=== PATIENT | female | born 1995 | race Caucasian/White ===

== ENCOUNTER → 2018-01-18 10:30 | Outpatient (CLI) | payer BC, SELFPAY ==
--- NOTE | 2018-01-18 10:34 | US_ITS ---
STUDY: THYROID ULTRASOUND REASON FOR EXAM: Female, 22 years old. Thyromegaly. TECHNIQUE: Ultrasound evaluation of the thyroid was performed with real-time and static tate-scale imaging. COMPARISON: None. FINDINGS: RIGHT LOBE: Right thyroid 5.6 x 2.1 x 1.3 cm, mildly enlarged, with generalized heterogeneous echotexture, normal vascular flow, mid polar isoechoic solid nodule with Perinodular vascular flow measuring 7 x 5 x 7 mm. LEFT LOBE: Left thyroid 5.6 x 2.0 x 1.5 cm, mildly enlarged, with generalized heterogeneous echotexture, normal vascular flow, and a superior pole hypoechoic solid circumscribed nodule with Perinodular vascular flow. ISTHMUS: The isthmus measures 0.7 cm , heterogeneous echotexture. Nodular focus measuring 7 x 7 x 4 mm, hypoechoic, solid-appearing. US/Thyroid IMPRESSION: Discrete thyroid nodules are present on the right and the left. Largest on the left measures 11 x 9 x 8 mm. Each is solid. Background heterogeneity of the gland is suspicious for sequela of thyroiditis. Based on [place] [employer] Guidelines for assessment of thyroid nodules, the hypoechoic solid nodule on the left has an intermediate suspicion pattern while the isoechoic solid nodule on the right has a low suspicion pattern. Based on size criteria for the intermediate suspicion pattern dominant nodule, size greater than or equal to 1 cm, ultrasound-guided FNA biopsy is recommended. Electronically Signed: Jace Khan, at 18:17 EDT Tel , Service support ,
[2018-01-18 12:04] LABS: Hemoglobin A1c 7.8 % (4.2-6.3)
[2018-01-18 12:34] LABS: Free T3 3.6 pg/mL (2.18-3.98); T4 Free Direct 0.96 ng/dL (0.76-1.46); Thyroid Stim Hormone (TSH) 2.84 uIU/mL (0.358-3.74)
[2018-01-18 12:35] LABS: ALB/GLOB Ratio 0.7 RATIO (0.9-2.4); AST(SGOT) 18 U/L (15-37); Alanine Aminotransfer ALT/SGPT 21 U/L (13-56); Albumin, Serum 3.2 g/dL (3.2-5.0); Alkaline Phosphatase 91 U/L (45-117); Anion Gap 10 (5-15); BUN 7 mg/dL (7-18); BUN/Creat Ratio 13.3 RATIO (10-20); Chloride 103 mmol/L (98-107); Cholesterol 216 mg/dL (200); Creatinine, Serum 0.53 mg/dL (0.55-1.02); EST Glomerular Filtration Rate 152 mL/min (>60); Est Glom Filt Rate - Afr Amer 184 mL/min (>60); Globulin 4.3 g/dL (2.2-4.2); Glucose 109 mg/dL (74-106); High Density Lipoprotein 83 mg/dL; Potassium 3.9 mmol/L (3.5-5.1); Protein, Total 7.5 g/dL (6.4-8.2); Sodium Level 140 mmol/L (136-145); Triglycerides 100 mg/dL; Very Low Density Lipoprotein 20 mg/dL (5-40)
== END ==
PROVIDERS: Nurse Practitioner; Family Provider Internal Medicine; PCP Internal Medicine; Visit Provider Obstetrics & Gynecology
DX: E01.0 Iodine-deficiency related diffuse (endemic) goiter (principal); E10.9 Type 1 diabetes mellitus without complications
CPT/HCPCS: 36415; 76536; 80053; 80061; 83036; 84439; 84443; 84481

== ENCOUNTER → 2018-04-20 08:00 | Outpatient (CLI) | payer BC, SELFPAY ==
--- NOTE | 2018-04-20 | ASPS_PTH ---
PATIENT: RACHELE BEEBE LOC: [facility] U#:[id number] AGE/SX: 30/ ROOM: RE04/20/[address]: Dr. Rafat Alfaro MD : 1995 BED: DIS: SPEC #: [id number] RECD: 04/20/18 15:20 STATUS: EDGAR JUAN #: [id number] PRAVEENA: 04/20/18 00:[address]: Rafat Alfaro DEPT: CYTOLOGY RECD BY: Luiz Drake ENTERED: 04/23/18 11:17 SP TYPE: ASPIRATION OTHR DR: Dr. Sasha Fuentes MD Tissues: A - Thyroid gland, NOS B - Thyroid gland, NOS Procedures: Special Stain Group II Cytology Other HEADER OPERATION: Thyroid FNA PRE-OP DIAGNOSIS: Multiple thyroid nodules TISSUE SUBMITTED: A. Left thyroid, B. Right thyroid DIAGNOSIS CYTOLOGY A. Left thyroid nodule, fine needle aspiration (smears): Adequate for evaluation. Consistent with benign follicular nodule. Chronic lymphocytic thyroiditis. B. Right thyroid nodule, fine needle aspiration (smears): Adequate for evaluation. Atypical follicular cells of uncertain significance. Chronic lymphocytic thyroiditis. AM:duong 04/24/18 COMMENT Immediate cytologic evaluation to determine adequacy is not applicable. Reference is made to the patient's previous left thyroid nodule, fine needle aspiration from 2016 ([id number]) in which chronic lymphocytic thyroiditis was identified. CYTOLOGY STUDY Slides are reviewed. CYTOLOGY GROSS A. Received are 6 smears labeled with the patient's name and designated per the requisition as left thyroid. Submitted for staining. B. Received are 4 smears labeled with the patient's name and designated per the requisition as right thyroid. Submitted for staining. /CC:cc 04/23/18 TC:? CPT: 19103 x2
== END ==
PROVIDERS: Family Provider Internal Medicine; PCP Internal Medicine; Referring Provider Surgery; Visit Provider Surgery
DX: E04.2 Nontoxic multinodular goiter (principal)
CPT/HCPCS: 88161; 88313

== ENCOUNTER → 2018-10-25 12:39 | Outpatient (CLI) | payer BC, SELFPAY ==
[2018-03-23 11:48] VITALS: BMI 38.2
--- NOTE | 2018-10-25 12:41 | US_ITS ---
STUDY: THYROID ULTRASOUND REASON FOR EXAM: Female, 23 years old. Nodules TECHNIQUE: Ultrasound evaluation of the thyroid was performed with real-time and static tate-scale imaging. COMPARISON: 01/18/2018 FINDINGS: RIGHT LOBE: Right thyroid 5.4 x 1.6 x 1.6 cm, mildly enlarged, with generalized heterogeneous echotexture, normal vascular flow, mid polar isoechoic solid nodule with Perinodular vascular flow measuring 1.0 x 0.9 x 1.0 cm LEFT LOBE: Left thyroid 5.8 x 2.1 x 1.7 cm, mildly enlarged, with generalized heterogeneous echotexture, normal vascular flow, and a superior pole hypoechoic solid circumscribed nodule with Janki nodular vascular flow measuring 1.3 x 1.3 x 0.7 cm. ISTHMUS: The isthmus measures 0.7 cm US/Thyroid IMPRESSION: Discrete thyroid nodules are present on the right and the left. Largest on the left measures 1.3 x 1.3 x 0.7 cm each is solid. No interval change Electronically Signed: Dameon Werner MD at 16:20 EDT , Service support ,
== END ==
PROVIDERS: Family Provider Internal Medicine; PCP Internal Medicine; Referring Provider Surgery; Visit Provider Surgery
DX: E04.2 Nontoxic multinodular goiter (principal)
CPT/HCPCS: 76536

== ENCOUNTER → 2020-01-14 | Outpatient (CLI) | payer OTHER, SELFPAY ==
[2018-12-28 13:45] VITALS: BMI 38.2
== END | disposition home or self-care (01) ==
LOC: MTDU 11:18
PROVIDERS: PCP Internal Medicine; Referring Provider Clinical Nurse Specialist; Visit Provider Clinical Nurse Specialist
DX: Z03.818 Encounter for observation for suspected exposure to other biological agents ruled out (principal); R05 Cough; R50.9 Fever, unspecified
CPT/HCPCS: 87635; 94799; U0003

== ENCOUNTER → 2020-01-27 11:47 | Outpatient (CLI) | payer OTHER, SELFPAY ==
[2020-01-27 08:08] VITALS: BMI 38.2
[2020-01-31 17:02] LABS: HPV APTIMA, High Risk Negative (Negative); HPV Reflexed? YES, CHARGE PATIENT
== END ==
PROVIDERS: PCP Internal Medicine; Referring Provider Obstetrics & Gynecology; Visit Provider Obstetrics & Gynecology
DX: Z12.4 Encounter for screening for malignant neoplasm of cervix (principal)
CPT/HCPCS: 87624; 88175; G0145

== ENCOUNTER → 2020-04-10 | Outpatient (CLI) | payer OTHER, SELFPAY ==
[2020-01-27 08:08] VITALS: BMI 38.2
[2020-04-10 11:35] LABS: Absolute Lymphocyte Count 3.07 X10^3/uL (0.83-4.51); Basophil# 0.04 X10^3/uL; Basophil% 0.4 % (0-1); Eosinophil# 0.28 X10^3/uL; Eosinophils% 3.1 % (0-5); Hematocrit 40.9 % (37-47); Hemoglobin 13.1 g/dL (12.0-15.0); Lymphocyte # 3.07 X10^3/ul (4.0); Lymphocyte % 34.3 % (19-41); Mean Corpuscular Hgb 26.6 pg (27.0-32.0); Mean Corpuscular Volume 83.1 fL (81-99); Mean Platelet Vol. 10.3 fl (6.2-12.0); Monocyte# 0.46 X10^3/uL; Monocyte% 5.1 % (0-10); NRBC Flagged by Analyzer 0 % (0-5); Neutrophil # 5.03 X10^3/uL (2.7-7.7); Neutrophil % 56.4 % (47-70); Platelet Count 292 K/mm3 (150-450); RBC Distribution Width CV 13.2 % (11.6-14.6); RBC Distribution Width SD 39.8 fl (35.1-43.9); Red Blood Count 4.92 M/mm3 (4.2-5.4); White Blood Count 8.9 K/mm3 (4.4-11.0)
[2020-04-10 12:00] LABS: Protein, Urine (Random) 8.8 mg/dL (<11.9); Protein:Creat Ratio 135 mg/g CRE (0-200)
[2020-04-10 12:05] LABS: Hemoglobin A1c 9.1 % (3.8-5.6)
[2020-04-10 12:09] LABS: Rubella IgG 108.8 IU/mL
[2020-04-10 13:36] LABS: ALB/GLOB Ratio 0.8 RATIO (0.9-2.4); AST(SGOT) 12 U/L (15-37); Alanine Aminotransfer ALT/SGPT 23 U/L (13-56); Albumin, Serum 3.3 g/dL (3.2-5.0); Alkaline Phosphatase 121 U/L (45-117); Anion Gap 6 (5-15); BUN 7 mg/dL (7-18); Calcium,Total 8.5 mg/dL (8.5-10.1); Chloride 104 mmol/L (98-107); Creatinine, Serum 0.78 mg/dL (0.55-1.02); EST Glomerular Filtration Rate 95 mL/min (>60); Est Glom Filt Rate - Afr Amer 115 mL/min (>60); Estradiol 32.1 pg/mL; Follicle Stimulating Hormone 7.7 mIU/mL; Globulin 3.9 g/dL (2.2-4.2); Glucose 245 mg/dL (74-106); Potassium 3.5 mmol/L (3.5-5.1); Protein, Total 7.2 g/dL (6.4-8.2); Sodium Level 137 mmol/L (136-145); T4 Free Direct 0.96 ng/dL (0.76-1.46)
[2020-04-13 10:48] LABS: Testosterone Free 2.8 pg/mL (0.0-4.2)
[2020-04-18 14:30] LABS: 17-Hydroxyprogesterone 18 ng/dL (.)
== END | disposition home or self-care (01) ==
LOC: LAB 11:08
PROVIDERS: PCP Internal Medicine; Referring Provider Obstetrics & Gynecology; Visit Provider Obstetrics & Gynecology
DX: N92.6 Irregular menstruation, unspecified (principal)
CPT/HCPCS: 36415; 80053; 82570; 82627; 82670; 83001; 83036; 83498; 84146; 84156; 84402; 84439; 84443; 85025; 86762; 82626

== ENCOUNTER → 2020-12-28 09:57 | Outpatient (CLI) | payer OTHER, SELFPAY ==
[2020-12-24 16:24] VITALS: BMI 38.2
[2020-12-28 11:55] LABS: hCG Titer Quant., Serum 23167 mIU/mL (1-3)
== END ==
PROVIDERS: Obstetrics & Gynecology; PCP Internal Medicine; Referring Provider Obstetrics & Gynecology; Visit Provider Obstetrics & Gynecology
DX: N92.6 Irregular menstruation, unspecified (principal)
CPT/HCPCS: 36415; 84702; 86850; 86900; 86901

== ENCOUNTER → 2020-12-29 13:24 | Outpatient (CLI) | payer OTHER, SELFPAY ==
[2020-12-24 16:24] VITALS: BMI 38.2
--- NOTE | 2020-12-29 13:27 | US_ITS ---
STUDY: FIRST TRIMESTER OBSTETRICAL ULTRASOUND REASON FOR EXAM: Female, 25 years old . Dating. Irregular menses. LMP: 11/13/2020. TECHNIQUE: Transvaginal TECHNICAL QUALITY: Adequate. PRIOR ULTRASOUND: None. FINDINGS: There is visualization of a single gestational sac in a normal intrauterine position. The gestational sac shape is within normal limits. There is a visualized yolk sac. The yolk sac measures 3.9 mm. The placenta is non-visualized. There is visualization of a live embryo. The crown-rump length (CRL) measures 0.99 cm, indicating an estimated gestational age (EGA) of 7 weeks, 0 days. There is demonstrated cardiac activity with a heart rate of 152 bpm. The estimated gestation age (EGA) by LMP is 8 weeks, 4 days. The estimated date of delivery (DARYN) by LMP is 08/06/2021. The estimated gestation age (EGA) by US is 7 weeks, 0 days. The estimated date of delivery (DARYN) by US is 08/17/2021. The uterus measures 9.7 cm x 6.1 cm x 5.4 cm. There is no demonstrated uterine fibroid. The cervix is closed. There is a 1.1 cm x 1.6 cm x 0.5 cm subchorionic hematoma. The right ovary measures 3.1 cm x 2.8 cm x 2.2 cm. There is no right ovarian cyst. There is no visualized right adnexal mass or complex lesion. The left ovary measures 3 cm x 3.4 cm x 2 cm. A dominant follicle is seen within it measuring 1.6 cm x 1.6 cm x 1.3 cm. There is no visualized left adnexal mass or complex lesion. There is no fluid in the cul de sac. US/Transvaginal w/Preg US IMPRESSION: Single live intrauterine gestation with a mean gestational age of 7 weeks. Small subchorionic hematoma. Electronically Signed: Kingsley Tubbs MD at 9:30 EDT , Service support ,
== END ==
LOC: OPUS 13:26
PROVIDERS: PCP Internal Medicine; Visit Provider Obstetrics & Gynecology
DX: N92.6 Irregular menstruation, unspecified (principal)
CPT/HCPCS: 76817

== ENCOUNTER → 2021-01-01 | Outpatient (CLI) | payer OTHER, SELFPAY ==
[2021-01-01 11:28] VITALS: BMI 38.2
[2021-01-01 13:42] LABS: Amphetamine Urine VISTA NEGATIVE (<1000 ng/mL); Barbiturate Urine VISTA NEGATIVE (< 200 ng/mL); Benzodiazepine Urine VISTA NEGATIVE (< 200 ng/mL); Cocaine Urine VISTA NEGATIVE (< 300 ng/mL); Ecstacy Urine VISTA NEGATIVE (< 500 ng/mL); Methadone Urine VISTA NEGATIVE (< 300 ng/mL); PCP Urine VISTA NEGATIVE (< 25 ng/mL); THC Urine VISTA NEGATIVE (< 50 ng/mL); Vista UDS pH Range 6
[2021-01-04 07:06] LABS: Chlamydia By Nucleic Acid AMP Negative (Negative)
[2021-01-04 12:38] LABS: Gonococcus By Nucleic Acid AMP Negative (Negative)
[2021-01-05 14:09] LABS: HPV Reflexed? NOT INDICATED
== END | disposition home or self-care (01) ==
PROVIDERS: PCP Internal Medicine; Visit Provider Obstetrics & Gynecology
DX: Z34.90 Encounter for supervision of normal pregnancy, unspecified, unspecified trimester (principal)
CPT/HCPCS: 80307; 87077; 87086; 87088; 87186; 87491; 87591; 88175; G0145

== ENCOUNTER → 2021-01-27 12:42 | Outpatient (CLI) | payer OTHER, SELFPAY ==
[2021-01-14 09:19] VITALS: BMI 38.2
[2021-01-27 13:39] LABS: Absolute Lymphocyte Count 2.84 X10^3/uL (0.83-4.51); Absolute Neutrophil Count 8.5 X10^3/uL (2.0-7.7); Basophil# 0.03 X10^3/uL; Basophil% 0.2 % (0-1); Eosinophil# 0.25 X10^3/uL; Hematocrit 39.7 % (37-47); Hemoglobin 12.6 g/dL (12.0-15.0); Lymphocyte # 2.84 X10^3/ul (0.83-4.51); Lymphocyte % 22.9 % (19-41); Mean Corp Hgb Conc 31.7 g/dL (32-36); Mean Corpuscular Hgb 25.8 pg (27.0-32.0); Mean Corpuscular Volume 81.2 fL (81-99); Mean Platelet Vol. 10.4 fl (6.2-12.0); Monocyte# 0.67 X10^3/uL; Monocyte% 5.4 % (0-10); NRBC Flagged by Analyzer 0 % (0-5); Neutrophil # 8.54 X10^3/uL (2.7-7.7); Neutrophil % 68.9 % (47-70); Platelet Count 328 K/mm3 (150-450); RBC Distribution Width CV 13.3 % (11.6-14.6); Red Blood Count 4.89 M/mm3 (4.2-5.4); White Blood Count 12.4 K/mm3 (4.4-11.0)
[2021-01-27 13:51] LABS: NATERA MAILED SPECIMEN
[2021-01-27 15:01] LABS: HIV - WCH Non-Reactive (Nonreactive); Hepatitis B Surface Antigen Non-Reactive (Nonreactive); Hepatitis C Antibody Non-Reactive (Nonreactive); Rubella IgG Reactive (Nonreactive); Syphilis Antibodies Non-reactive
== END ==
PROVIDERS: PCP Internal Medicine; Visit Provider Obstetrics & Gynecology
DX: Z34.81 Encounter for supervision of other normal pregnancy, first trimester (principal); Z31.430 Encounter of female for testing for genetic disease carrier status for procreative management
CPT/HCPCS: 36415; 85025; 86703; 86762; 86780; 86803; 86850; 86900; 86901; 87340

== ENCOUNTER → 2021-04-09 16:58 | Outpatient (CLI) | payer MEDICAID, SELFPAY ==
[2021-04-09 17:33] LABS: Absolute Lymphocyte Count 2.67 X10^3/uL (0.83-4.51); Absolute Neutrophil Count 10.2 X10^3/uL (2.0-7.7); Basophil# 0.02 X10^3/uL; Basophil% 0.1 % (0-1); Eosinophil# 0.25 X10^3/uL; Eosinophils% 1.8 % (0-5); Hematocrit 36.8 % (37-47); Hemoglobin 11.7 g/dL (12.0-15.0); Lymphocyte # 2.67 X10^3/ul (0.83-4.51); Lymphocyte % 19.1 % (19-41); Mean Corp Hgb Conc 31.8 g/dL (32-36); Mean Corpuscular Hgb 25.5 pg (27.0-32.0); Mean Corpuscular Volume 80.3 fL (81-99); Mean Platelet Vol. 10.7 fl (6.2-12.0); Monocyte# 0.69 X10^3/uL; Monocyte% 4.9 % (0-10); NRBC Flagged by Analyzer 0 % (0-5); Neutrophil # 10.24 X10^3/uL (2.7-7.7); Neutrophil % 73.4 % (47-70); Platelet Count 317 K/mm3 (150-450); RBC Distribution Width CV 14.1 % (11.6-14.6); RBC Distribution Width SD 41.1 fl (35.1-43.9); Red Blood Count 4.58 M/mm3 (4.2-5.4)
[2021-04-09 18:21] LABS: T4 Free Direct 0.74 ng/dL (0.76-1.46); Thyroid Stim Hormone (TSH) 2.31 uIU/mL (0.358-3.74)
== END ==
PROVIDERS: PCP Internal Medicine; Referring Provider Obstetrics & Gynecology; Visit Provider Obstetrics & Gynecology
DX: O24.012 Pre-existing type 1 diabetes mellitus, in pregnancy, second trimester (principal); Z3A.20 20 weeks gestation of pregnancy
CPT/HCPCS: 36415; 84439; 84443; 85025

== ENCOUNTER → 2021-05-31 10:18 | Outpatient (CLI) | payer MEDICAID, SELFPAY ==
[2021-05-31 11:11] LABS: Hemoglobin A1c 5.8 % (3.8-5.6)
== END ==
PROVIDERS: PCP Internal Medicine
DX: O24.012 Pre-existing type 1 diabetes mellitus, in pregnancy, second trimester (principal)
CPT/HCPCS: 36415; 83036

== ENCOUNTER → 2021-06-15 14:00 | Outpatient (CLI) | payer MEDICAID, SELFPAY ==
--- NOTE | 2021-06-15 14:06 | ECHOD_ITS ---
Reason For Study: Maternal DM I Procedure This was a 2D Doppler, Color Flow transthoracic echocardiogram. The study was technically difficult. Due to body habitus. Deferred Definity due to patient is 31 weeks . Exam performed in department. Left Ventricle Normal LV size. Left ventricular systolic function is normal. The estimated ejection fraction is 55 %. No regional wall motion abnormalities noted. Right Ventricle Normal RV size. Normal systolic function. Atria Normal left atrium. Normal right atrium. Mitral Valve Normal mitral valve. Tricuspid Valve Normal tricuspid valve. Aortic Valve The aortic valve is not well visualized. Pulmonic Valve The pulmonic valve is not well visualized. Great Vessels Normal aortic root. The pulmonary artery is normal size. Normal inferior vena cava. Pericardium/Pleural No pericardial effusion. MMode/2D Measurements & Calculations LVIDd: 4.6 cm IVSd: 1.1 cm Ao root diam: 3.1 cm LVIDs: 3.2 cm LVPWd: 1.1 cm RVDd: 2.9 cm FS: 31.8 % LAV(MOD-bp): 52.1 ml LA A4 area: 18.4 cm2 LA dimension(2D): 3.7 cm LAV(MOD-bp) Indexed: 23.0 ml/m2 LAV(MOD-sp2): 49.5 ml LAV(MOD-sp4): 49.9 ml RA A4 area: 13.1 cm2 Time Measurements MV dec time: 0.22 sec Doppler Measurements & Calculations MV E max adeel: 90.7 cm/sec Lat Peak E' Adeel: 14.2 cm/sec Med Peak E' Adeel: 14.5 cm/sec MV A max adeel: 89.4 cm/sec E/E' lat: 6.4 E/E' med: 6.2 MV E/A: 1.0 Ao V2 max: 162.7 cm/sec LV V1 max: 126.0 cm/sec PA V2 max: 117.8 cm/sec Ao max P.6 mmHg LV V1 max P.4 mmHg ECHO/Echo Complete Interpretation Summary Normal LV size. Left ventricular systolic function is normal. The estimated ejection fraction is 55 %. Structurally normal valves. Ordering Physician: NOHELIA COYLE Referring Physician: Sasha Fuentes Performed By: Beata Jin, SIMRAN, RVT
== END ==
PROVIDERS: PCP Internal Medicine
DX: O24.012 Pre-existing type 1 diabetes mellitus, in pregnancy, second trimester (principal); Z3A.00 Weeks of gestation of pregnancy not specified
CPT/HCPCS: 93306

== ENCOUNTER 2021-08-06 16:48 | Outpatient (CLI) | payer MEDICAID, SELFPAY | END 2021-08-06 23:59 | disposition home or self-care (01) | LOC: LABSPEC 16:49 | PROVIDERS: PCP Internal Medicine; Visit Provider Obstetrics & Gynecology | DX: Z34.83 Encounter for supervision of other normal pregnancy, third trimester (principal); Z3A.37 37 weeks gestation of pregnancy; Z20.822 Contact with and (suspected) exposure to COVID-19 | CPT/HCPCS: 87635; U0003; U0005 ==

== ENCOUNTER 2021-08-08 21:30 | Outpatient (CLI) | payer MEDICAID, SELFPAY ==
[2021-08-08] VITALS (7 sets, daily range): BP systolic 141; BP diastolic 68; PULSE 98–116; TEMP 36.9; O2SAT 96–97; BMI 52.6
[2021-08-08 22:45] LABS: Bedside Glucose 67 mg/dL (70-110)
[2021-08-08 22:45] LABS: Bedside Glucose 87 mg/dL (70-110)
--- NOTE | 2021-08-09 06:35 | OB.TRI.HP_ITS ---
HPI - General HPI Narrative RACHELE BEEBE, is a 26 y/o @ 38 weeks 6 days who presents to l&D with contractions. She denies loss of fluid, vaginal bleeding, or dec fm. She has type 1 DM on insulin and is planned to have an IOL on Monday Maternal Data Information DARYN Calculator Estimated Delivery Date Method Current WG Current Estimate 08/17/21 Ultrasound #1 38w 6d Other Estimates 08/06/21 LMP (Certain) 40w 3d PFSH PFSH Medical History Anxiety and depression Diabetes type 1, controlled GERD (gastroesophageal reflux disease) Infertility Positive GBS test Home Medications cholecalciferol (vitamin D3) 25 mcg (1,000 unit) capsule 1,000 unit PO QDAY 01/08/18 [History Last Taken Unknown] docosahexaenoic acid 200 mg capsule 200 mg PO DAILY 01/08/18 [History Last Taken Unknown] flash glucose sensor #2 ea 01/11/21 [Rx Last Taken Unknown] insulin glargine 100 unit/mL (3 mL) subcutaneous pen See Rx Instructions .ROUTE .COMPLEX ml 07/08/21 [History Last Taken Unknown] insulin lispro 100 unit/mL subcutaneous pen 36 unit SUBCUT TID ml 07/08/21 [ History Last Taken Unknown] aspirin 08/08/21 [History Last Taken Unknown] folic acid 5 mg PO DAILY 08/08/21 [History Last Taken Unknown] Allergy/AdvReac Type Severity Reaction Status Date / Time cefadroxil Allergy Unknown Unknown Verified 08/06/21 13:52 metformin [From Glucophage] Allergy Rash Verified 08/06/21 13:52 acetaminophen AdvReac Hives Verified 08/08/21 22:17 [From [facility] with Codeine] codeine AdvReac Hives Verified 08/08/21 22:17 [From [facility] with Codeine] SEPZOL AdvReac Nausea/Vom/ Uncoded 08/06/21 13:52 Diarrhea Family History Grandfather Liver cancer Grandmother Lymphoma Unknown Diabetes Hypertension Cancer Arthritis Mother Diabetes Asthma Arthritis Sister Diabetes Surgical History H/O removal of cyst History of placement of ear tubes Social History adopted: No household members: spouse and other details: mother number of children: 0 current occupational status: unemployed Smoking Status: Never smoker alcohol intake: current substance use type: does not use caffeine: Yes (occasionally) what type of physical activity do you participate in: none seatbelt use: always do you feel safe at home: Yes additional social history: Anurag Price Patient takes care of her mom History 0 Elective abortions Hx Para Spontaneous abortions Hx # Term Pregnancies Ectopic pregnancies Hx # Pregnancies Multiple births # of living children Visit Details Expected Delivery Route/Plan Labor Preferences- CB/BF classes: considering labor support person: Ras labor intervention preferences: [] pain management options preferred: [] cut cord/dad catch: [] : [] PP control planned: [] discussed possible routes of delivery and associated risks: [] special requests: [] Plans COVID: Discussed risks and benefits of Covid shot. counseled regarding risk of covid in vs vaccination and declined vaccinationi flu vaccine: 03/08 tdap vaccine: given rhogam: na LARC form signed: movement and labor precautions reviewed. Problem list reviewed and updated with the most current plan of care details and appropriate orders placed. Relevant counseling for the gestational age provided. Continue routine care and follow up unless otherwise noted in visit notes/problem list details OB Flowsheet Initial Weight: 272 lb Date -?-?-?-?-?-?-?-?-?-?-?-?- EGA Weight BP Urine Prot -?-?-?-?-?-?--?-?-?-?-?-?- Glucose FHR FuHt Pres Dilation -?-?-?-?-?-?-?-?-?-?-?-?- Effaced St Visit Note 01/01/21 -?-?-?-?-?-?-?-?-?-?-?-?- 7w 3d 272 lb (+0 oz) 144/90 -?-?-?-?-?-?-?-?-?-?-?-?- 168 -?-?-?-?-?-?-?-?-?-?-?-?- GP - CRL 11mm co nsistent with prior US. NOT consistent with LMP. 01/14/21 -?-?-?-?-?-?-?-?-?-?-?-?- 9w 2d 275 lb 4 oz (+3 lb 4 oz) 122/60 -?-?-?-?-?-?-?-?-?-?-?-?- 171 -?-?-?-?-?-?--?-?-?-?-?-?- GP - no cramping or bleeding. Saw endocrinology, but likely changing to different endocrinology practice. Discussed importance of glycemic control. 02/08/21 -?-?-?-?-?-?-?-?-?-?-?-?- 12w 6d 280 lb (+8 lb) 138/78 -?-?-?-?-?-?-?-?-?-?-?-?- 160 -?-?-?-?-?-?-?-?-?-?-?-?- Sm- no vb cramin g, nausea in evenings. 03/08/21 -?-?-?-?-?-?-?-?-?-?-?-?- 16w 6d 286 lb (+14 lb) 128/78 Negative -?-?-?-?-?-?-?-?-?-?-?-?- Negative 168 -?-?-?-?-?-?-?-?-?-?-?-?- GP - no cramping or bleeding. Following with MFM for diabetes. Flu shot today. 04/02/21 -?-?-?-?-?-?-?-?-?-?-?-?- 20w 3d 289 lb 4 oz (+17 lb 4 oz) 116/68 Negative -?-?-?-?-?-?-?-?-?-?-?-?- Negative 155 -?-?-?-?-?-?-?-?-?-?-?-?- GP - work in for breast lump. Normal breast changes of . Denies cramping or bleeding. 04/09/21 -?-?-?-?-?-?-?-?-?-?-?-?- 21w 3d 294 lb 2 oz (+22 lb 2 oz) 122/70 Negative -?-?-?-?-?-?-?-?-?-?-?-?- Negative 150 22 -?-?-?-?-?-?-?-?-?-?-?-?- Sm- no vb lof so me fm no regualr ctx 05/06/21 -?-?-?-?-?-?-?-?-?-?-?-?- 25w 2d 298 lb 8 oz (+26 lb 8 oz) 130/70 -?-?-?-?-?-?-?-?-?-?-?-?- 147 32 -?-?-?-?-?-?-?-?-?-?-?-?- JV- growth scan at end of month. continue follow up with endo. ua negative. 05/27/21 -?-?-?-?-?-?-?-?-?-?-?-?- 28w 2d 304 lb (+32 lb) 118/72 Negative -?-?-?-?-?-?-?-?-?-?-?-?- Negative 145 32 -?-?-?-?-?-?-?-?-?-?-?-?- SM- no vb lof go od fm no regular ctx SM- no vb lof good fm no reg ular ctx reviewed BS control 06/07/21 -?-?-?-?-?-?-?-?-?-?-?-?- 29w 6d 305 lb (+33 lb) 124/70 Negative -?-?-?-?-?-?-?-?-?-?-?-?- Negative 145 33 -?-?-?-?-?-?-?-?-?-?-?-?- SM- no vb lof go od fm no regular ctx 07/01/21 -?-?-?-?-?-?-?-?-?-?-?-?- 33w 2d 307 lb (+35 lb) 114/72 Negative -?-?-?-?-?-?-?-?-?-?-?-?- Negative 140 -?-?-?-?-?-?-?-?-?-?-?-?- MH-NST only reac tive. Glucose reading nl 07/08/21 -?-?-?-?-?-?-?-?-?-?-?-?- 34w 2d 305 lb 6 oz (+33 lb 6 oz) 106/70 Negative -?-?-?-?-?-?-?-?-?-?-?-?- Negative 140 -?-?-?-?-?-?-?-?-?-?-?-?- SM- BS managed b y MFM. doing well. no vb lof good fm no regular ctx 07/16/21 -?-?-?-?-?-?-?-?-?-?-?-?- 35w 3d 308 lb 4 oz (+36 lb 4 oz) 110/70 -?-?-?-?-?-?-?-?-?-?-?-?- 130 -?-?-?-?-?-?-?-?-?-?-?-?- SM- nst SM- nst no vb lof good fm no regular ctx 07/29/21 -?-?-?-?-?-?-?-?-?-?-?-?- 37w 2d 315 lb (+43 lb) 122/81 Negative -?-?-?-?-?-?-?-?-?-?-?-?- Negative 130 -?-?-?-?-?-?-?-?-?-?-?-?- SM- no vb lof go od fm no regular ctx nst reactive saw mfm monday08/06/21 -?-?-?-?-?-?-?-?-?-?-?-?- 38w 3d 315 lb (+43 lb) 120/78 Negative -?-?-?-?-?-?-?-?-?-?-?-?- Negative -?-?-?-?-?-?-?-?-?-?-?-?- 08/08/21 -?-?-?-?-?-?-?-?-?-?-?-?- 38w 6d 316 lb 6.4 oz (+44 lb 6.4 oz) 141/68 -?-?-?-?-?-?-?-?-?-?-?-?- -?-?-?-?-?-?-?-?-?-?-?-?- ROS Constitutional Constitutional: Reports systems reviewed and no addt'l complaints, except as documented Gastrointestinal Gastrointestinal: Denies bloating, constipation, cramping, diarrhea, nausea or vomiting Genitourinary Genitourinary: Reports other Details: Denies vaginal odor, vaginal bleeding, or vaginal discharge ; Denies difficulty urinating or flank pain Physical Exam HEENT normocephalic Resp normal respiratory effort and normal air movement no CVA tenderness Extremity normal to inspection General Extremity: edema bilateral (trace ) NST FHR Rate Baby A Baseline: 130 Variability:: Moderate Accelerations:: 15 x 15 Decelerations:: None NST Reactive:: Yes FHR Category:: Category I Assessment & Plan (1) Positive GBS test: COMMENT: positive gbs in urine. PCN in labor (2) Family history of neural tube defect: COMMENT: Sister with encephalocele. afp negative. folic acid supplement. (3) Anxiety: COMMENT: No meds (4) Supervision of high risk , antepartum: COMMENT: PRR DARYN 08/17/21 girl Damari Spouse: Ze (5) : QUALIFIERS: Weeks of gestation: 37 weeks Qualified Code(s): Z3A.37 - 37 weeks gestation of COMMENT: declines carrier, AFP-negative, low risk NIPT; NL anatomy and nl echo. (6) Multiple thyroid nodules: COMMENT: bloodwork and imaging ordered-WNL. No repeat done X 1 year (7) Diabetes type 1, controlled: QUALIFIERS: Diabetes mellitus complication status: without complication Qualified Code(s): E10.9 - Type 1 diabetes mellitus without complications COMMENT: MFM following. growth every 4 weeks, twice weekly surveillance and daily kick counts starting at 32 weeks. delivery at 39 weeks. PLAN: The patien was monitored for 2 hours and did not make cervical ch zac. She was given 3 options, #1 morphine + IV zofran and recheck cervix in 1-2 hours, #2 home to rest and a warm bath and return when pain gets better, and #3 induction of labor. She chose to go home. plan for IOL on Monday unless returns in labor. Charges/Coding Multi Select Codes Visit Charges Office Visit/Consults: 43201 OV L3 Est Urinary/Genital Urinary/Genital CPT Codes: 09897-74 non-stress test Interp
== END 2021-08-09 01:00 | disposition home or self-care (01) ==
LOC: WPOUT 21:37 → WP 21:38
PROVIDERS: PCP Internal Medicine; Visit Provider Obstetrics & Gynecology
DX: O24.013 Pre-existing type 1 diabetes mellitus, in pregnancy, third trimester (principal); Z79.4 Long term (current) use of insulin; E10.9 Type 1 diabetes mellitus without complications; O99.343 Other mental disorders complicating pregnancy, third trimester; F41.9 Anxiety disorder, unspecified; Z79.82 Long term (current) use of aspirin; Z3A.37 37 weeks gestation of pregnancy; Z79.899 Other long term (current) drug therapy
CPT/HCPCS: 59050; G0378 ×2; 82962; 59025; 99218

== ENCOUNTER 2021-08-09 10:35 | Inpatient (IN) | payer MEDICAID, SELFPAY ==
[2021-08-09] VITALS (36 sets, daily range): BP systolic 113–144; BP diastolic 53–85; PULSE 77–114; TEMP 36.4–36.9; O2SAT 91–99; BMI 52.7
[2021-08-09 10:10] LABS: ROM Internal Control Test YES-OK TO RESULT pt. (Internal QC)
[2021-08-09 10:11] LABS: ROM Patient Test POSITIVE (Negative)
[2021-08-09] MEDS: Lactated Ringers 1,000 ML 50 ML IV (10:30)
[2021-08-09 10:52] LABS: Absolute Lymphocyte Count 1.63 X10^3/uL (0.83-4.51); Absolute Neutrophil Count 9.1 X10^3/uL (2.0-7.7); Basophil# 0.03 X10^3/uL; Basophil% 0.3 % (0-1); Eosinophil# 0.06 X10^3/uL; Eosinophils% 0.5 % (0-5); Hematocrit 37.4 % (37-47); Hemoglobin 11.9 g/dL (12.0-15.0); Lymphocyte # 1.63 X10^3/ul (0.83-4.51); Lymphocyte % 14.2 % (19-41); Mean Corp Hgb Conc 31.8 g/dL (32-36); Mean Corpuscular Hgb 24.5 pg (27.0-32.0); Mean Corpuscular Volume 77.1 fL (81-99); Mean Platelet Vol. 11.4 fl (6.2-12.0); Monocyte# 0.67 X10^3/uL; Monocyte% 5.8 % (0-10); NRBC Flagged by Analyzer 0 % (0-5); Neutrophil # 9.06 X10^3/uL (2.7-7.7); Neutrophil % 78.7 % (47-70); Platelet Count 255 K/mm3 (150-450); RBC Distribution Width CV 15.1 % (11.6-14.6); RBC Distribution Width SD 41.1 fl (35.1-43.9); Red Blood Count 4.85 M/mm3 (4.2-5.4); White Blood Count 11.5 K/mm3 (4.4-11.0)
[2021-08-09 11:11] LABS: Bedside Glucose 133 mg/dL (70-110)
[2021-08-09] MEDS: Lactated Ringers 500 ML 999 ML IV (11:54)
[2021-08-09] MEDS: fentaNYL-bupivacaine (epidural) 100 ML BAG EPIDURAL ×3 (12:45→21:26)
[2021-08-09 12:46] LABS: Bedside Glucose 161 mg/dL (70-110)
[2021-08-09] MEDS: Lactated Ringers 1,000 ML 15 ML IV (13:49)
[2021-08-09] MEDS: Dext 5%-0.45% NS 1,000 ML 125 ML IV ×2 (13:50→22:20)
[2021-08-09 14:20] LABS: Bedside Glucose 166 mg/dL (70-110)
[2021-08-09 14:20] LABS: Bedside Glucose 159 mg/dL (70-110)
--- NOTE | 2021-08-09 14:47 | NURSING ---
1415: Blood Glucose 166. Insulin drip started at 2units/hr per protocol. Verified with Jodie ORDONEZ, SITE PHYSICIAN.
--- NOTE | 2021-08-09 14:50 | NURSING ---
Pt Type 1 DM. BG POC at 1100 133. Rechecked in 1hr POC 161. Dr. Andrew on unit to evaluate pt at 1218. Verbal order given for OB Diabetic Pt Insulin infusion. Order placed. Pt then desired epidural. Dr. Schwartz in room to place epidural at 1226. Epidural placed. This RN then went to obtain Insulin infusion medication. Noted medication was not on unit at this time. Went into MAR and noted that the medication was ordered but there was no specified start time for the medication. Call was placed to Pharmacy to figure out where insulin drip was. Sticker had printed for them to make medication but pharmacy was not sure why I could not see a start time on my end in MAR. Believe it is because Dr. Andrew is still in the chart. During this time approx 1315 BG POC was obtained by Ck, result of 159. Call was placed to [place]. Spoke with nurse regarding Dr. Andrew still in chart. Was told she would locate her. This RN then went to pts room to set up pumps in preparation for insulin drip and place calderón catheter. Insulin drip medication brought to room by registered respiratory technician. Ck came to room to start Insulin drip. Per protocol Insulin drip was to be started at 1.5units/hr. Attempted to scan medication to give. Window appeared in MAR asking for dose, units, rate in ml/hr. Attempted to fill in boxes. Error for units identified. Multiple different entries made and unable to get past this window. Call made to pharmacist. Pharmacist is unable to identify the problem as the medication looks correct on her end. Jodie ORDONEZ, CONTAINER WASHER called to room for assistance. Jodie unsure of this problem. Pharmacist believes the issue is the flowsheet that is connected to the medication order. Call was placed to [facility] by the Pharmacist. Pharmacist states that there are no clinical economics analyst in the hospital at this time. Per Pharmacist document administration and titration in Nurses Notes. Blood glucose POC obtained at approx 1415 before starting of insulin drip. BG POC 166. Protocol verified with this RN and Jodie ORDONEZ, CONTAINER WASHER. Drip to be started at 2units/hr. Will continue to document titration in Nursing Notes.
--- NOTE | 2021-08-09 15:20 | NURSING ---
Blood Glucose POC obtained, result of 161. Per Protocol Insulin gtt increased to 3units/hr. Medication increased and verified with Ck ORDONEZ.
--- NOTE | 2021-08-09 16:23 | NURSING ---
1620 BG POC 144. Per protocol insulin to be increases by 0.5 units/hr. This RN and Latasha ORDONEZ changed dose. Insulin now running at 3.5units/hr.
[2021-08-09 16:26] LABS: Bedside Glucose 161 mg/dL (70-110)
[2021-08-09 16:26] LABS: Bedside Glucose 144 mg/dL (70-110)
[2021-08-09] MEDS: Oxytocin 30 units/NS 500 ml 30 UNITS/500 ML IV.SOLN IV (16:56)
--- NOTE | 2021-08-09 17:20 | NURSING ---
Pts POC Blood Glucose checked. Result 111. Per protocol rate decreased by 50%. With Ck ORDONEZ insulin rate decreased to 1.75units/hr.
[2021-08-09 17:26] LABS: Bedside Glucose 111 mg/dL (70-110)
--- NOTE | 2021-08-09 18:20 | NURSING ---
Bedside POC blood glucose 86. Per protocol decrease rate by 50%. Insulin drip changed to 0.875units/hour. Dose changed with Ck ORDONEZ.
[2021-08-09 18:25] LABS: Bedside Glucose 86 mg/dL (70-110)
--- NOTE | 2021-08-09 18:37 | NURSING ---
Called Dr. Andrew regarding pt VE and blood glucose reading. Plan to check pts blood glucose at 1845, half an hour after prior check.
[2021-08-09 18:50] LABS: Bedside Glucose 95 mg/dL (70-110)
[2021-08-09] MEDS: Ondansetron 4 MG/2 ML Vial IV (19:23)
[2021-08-09] MEDS: 0.9% Saline Lock 10 ML Syringe IV (19:23)
[2021-08-09 19:31] LABS: Bedside Glucose 103 mg/dL (70-110)
--- NOTE | 2021-08-09 19:38 | NURSING ---
1918 bedside bgt 103. per protocol insulin infusion stays at same rate. infusion drip rate remains at 0.875 units/hr
--- NOTE | 2021-08-09 20:18 | NURSING ---
bedside bgt 110. per diabetic protocol insulin infusion remains at same rate of 0.875 units/hr.
[2021-08-09 20:26] LABS: Bedside Glucose 110 mg/dL (70-110)
--- NOTE | 2021-08-09 21:18 | NURSING ---
bedside bgt 126, pt had a change of 16 mg/dL from 2015 check, per protocol insulin infusion increased by 0.5 unit/hr to a rate of 1.37 units/hr. verified insulin infusion with Marin Coreas RN.
[2021-08-09 21:26] LABS: Bedside Glucose 126 mg/dL (70-110)
--- NOTE | 2021-08-09 22:19 | NURSING ---
bedside bgt 118, decrease of 8 mg/dL, per protocol insulin infusion rate increased by .5 unit/hr to 1.87 unit/hr. verified with Marin Coreas RN
[2021-08-09 22:31] LABS: Bedside Glucose 118 mg/dL (70-110)
--- NOTE | 2021-08-09 23:19 | NURSING ---
bedside bgt 123, change from previous hour by 5 mg/dL, per protocol insulin infusion rate increased by 0.5 units/hr to 2.37 units/hr. verified change and rate with Marin Coreas RN
[2021-08-09 23:26] LABS: Bedside Glucose 123 mg/dL (70-110)
[2021-08-10] VITALS (47 sets, daily range): BP systolic 120–136; BP diastolic 57–71; PULSE 85–117; RESP 16–20; TEMP 36.2–37.2; O2SAT 95–97
--- NOTE | 2021-08-10 00:23 | NURSING ---
bedside bgt 135, change by 12 mg/dL from previous hour, per protocol insulin infusion increased by 0.5 units/hr to 2.87 units/hr. verified insulin infusion rate with Marin Coreas RN
--- NOTE | 2021-08-10 01:19 | HP.PCM.OB_ITS ---
HPI - General General Date of Admission: 08/09/21 HPI Narrative RACHELE BEEBE, is a 26 F who presents IAL with clear SROM since this morning. she started with irregular ctx the day before and intermittently throughout the night and presented to labor and delivery with cervical change and rupture. she has had a complicated by diabetes that has been managed by cocare with MFM and insulin dependent type I diabetes. EFW was 3100g a little less than a month ago on ultrasound, so approximately 4100g now. Maternal Data Information DARYN Calculator Estimated Delivery Date Method Current WG Current Estimate 08/17/21 Ultrasound #1 39w 0d Other Estimates 08/06/21 LMP (Certain) 40w 4d PFSH PFS Medical History (Updated 08/10/21 @ 01:[address] Rachel Andrew MD) Anxiety and depression Diabetes mellitus Diabetes type 1, controlled GERD (gastroesophageal reflux disease) Infertility Positive GBS test Home Medications cholecalciferol (vitamin D3) 25 mcg (1,000 unit) capsule 1,000 unit PO QDAY 01/08/18 [History Last Taken Unknown] docosahexaenoic acid 200 mg capsule 200 mg PO DAILY 01/08/18 [History Last Taken Unknown] flash glucose sensor #2 ea 01/11/21 [Rx Last Taken Unknown] insulin glargine 100 unit/mL (3 mL) subcutaneous pen See Rx Instructions .ROUTE .COMPLEX ml 07/08/21 [History Last Taken Unknown] insulin lispro 100 unit/mL subcutaneous pen 36 unit SUBCUT TID ml 07/08/21 [History Last Taken Unknown] aspirin 08/08/21 [History Last Taken Unknown] folic acid 5 mg PO DAILY 08/08/21 [History Last Taken Unknown] Allergy/AdvReac Type Severity Reaction Status Date / Time cefadroxil Allergy Unknown Unknown Verified 08/09/21 09:34 metformin [From Glucophage] Allergy Rash Verified 08/09/21 09:34 acetaminophen AdvReac Hives Verified 08/08/21 22:17 [From [facility] with Codeine] codeine AdvReac Hives Verified 08/09/21 09:34 [From [facility] with Codeine] SEPZOL AdvReac Nausea/Vom/ Uncoded 08/09/21 09:34 Diarrhea Family History Grandfather Liver cancer Grandmother Lymphoma Unknown Diabetes Hypertension Cancer Arthritis Mother Diabetes Asthma Arthritis Sister Diabetes Surgical History H/O removal of cyst History of placement of ear tubes Social History adopted: No household members: spouse and other details: mother number of children: 0 current occupational status: unemployed Smoking Status: Never smoker alcohol intake: current substance use type: does not use caffeine: Yes (occasionally) what type of physical activity do you participate in: none seatbelt use: always do you feel safe at home: Yes additional social history: Anurag Grafmaría Patient takes care of her mom History 0 Elective abortions Hx Para 0 Spontaneous abortions Hx # Term Pregnancies Ectopic pregnancies Hx # Pregnancies Multiple births # of living children Visit Details Expected Delivery Route/Plan Labor Preferences- CB/BF classes: considering labor support person: Ras labor intervention preferences: [] pain management options preferred: [] cut cord/dad catch: [] : [] PP control planned: [] discussed possible routes of delivery and associated risks: [] special requests: [] Plans COVID: Discussed risks and benefits of Covid shot. counseled regarding risk of covid in vs vaccination and declined vaccinationi flu vaccine: 03/08 tdap vaccine: given rhogam: na LARC form signed: movement and labor precautions reviewed. Problem list reviewed and updated with the most current plan of care details and appropriate orders placed. Relevant counseling for the gestational age provided. Continue routine care and follow up unless otherwise noted in visit not es/problem list details OB Flowsheet Initial Weight: 272 lb Date -?-?-?-?-?-?-?-?-?-?-?-?- EGA Weight BP Urine Prot -?-?-?-?-?-?-?-?-?-?-?-?- Glucose FHR FuHt Pres Dilation -?-?-?-?-?-?-?-?-?-?-?-?- Effaced St Visit Note 01/01/21 -?-?-?-?-?-?-?-?-?-?-?-?- 7w 3d 272 lb (+0 oz) 144/90 -?-?-?-?-?-?--?-?-?-?-?-?- 168 -?-?-?-?-?-?-?-?-?-?-?-?- GP - CRL 11mm co nsistent with prior US. NOT consistent with LMP. 01/14/21 -?-?-?-?-?-?-?-?-?-?-?-?- 9w 2d 275 lb 4 oz (+3 lb 4 oz) 122/60 -?-?-?-?-?-?-?-?-?-?-?-?- 171 -?-?-?-?-?-?-?-?-?-?-?-?- GP - no cramping or bleeding. Saw endocrinology, but likely changing to different endocrinology practice. Discussed importance of glycemic control. 02/08/21 -?-?-?-?-?-?-?-?-?-?-?-?- 12w 6d 280 lb (+8 lb) 138/78 -?-?-?-?-?-?-?-?-?-?-?-?- 160 -?-?-?-?-?-?-?-?-?-?-?-?- Sm- no vb cramin g, nausea in evenings. 03/08/21 -?-?-?-?-?-?-?-?-?-?-?-?- 16w 6d 286 lb (+14 lb) 128/78 Negative -?-?-?-?-?-?-?-?-?-?-?-?- Negative 168 -?-?-?-?-?-?-?-?--?-?-?-?- GP - no cramping or bleeding. Following with MFM for diabetes. Flu shot today. 04/02/21 -?-?-?-?-?-?-?-?-?-?-?-?- 20w 3d 289 lb 4 oz (+17 lb 4 oz) 116/68 Negative -?-?-?-?-?-?-?-?-?-?-?-?- Negative 155 -?-?-?-?-?-?-?-?-?-?-?-?- GP - work in for breast lump. Normal breast changes of . Denies cramping or bleeding. 04/09/21 -?-?-?-?-?-?-?-?-?-?-?-?- 21w 3d 294 lb 2 oz (+22 lb 2 oz) 122/70 Negative -?--?-?-?-?-?-?-?-?-?-?-?- Negative 150 22 -?-?-?-?-?-?-?-?-?-?-?-?- Sm- no vb lof so me fm no regualr ctx 05/06/21 -?-?-?-?-?-?-?-?-?-?-?-?- 25w 2d 298 lb 8 oz (+26 lb 8 oz) 130/70 -?-?-?-?-?-?-?-?-?-?-?-?- 147 32 -?-?-?-?-?-?-?-?-?-?-?-?- JV- growth scan at end of month. continue follow up with endo. ua negative. 05/27/21 -?-?-?-?-?-?-?-?-?-?-?-?- 28w 2d 304 lb (+32 lb) 118/72 Negative -?-?-?-?-?-?-?-?-?-?-?--?- Negative 145 32 -?-?-?-?-?-?-?-?-?-?-?-?- SM- no vb lof go od fm no regular ctx SM- no vb lof good fm no reg ular ctx reviewed BS control 06/07/21 -?-?-?-?-?-?-?-?-?-?-?-?- 29w 6d 305 lb (+33 lb) 124/70 Negative -?-?-?-?-?-?-?-?-?-?-?-?- Negative 145 33 -?-?-?-?--?-?-?-?-?-?-?-?- SM- no vb lof go od fm no regular ctx 07/01/21 -?-?-?-?-?-?-?-?-?-?-?-?- 33w 2d 307 lb (+35 lb) 114/72 Negative -?-?-?-?-?-?-?-?-?-?-?-?- Negative 140 -?-?-?-?-?-?-?-?-?-?-?-?- -NST only reac tive. Glucose reading nl 07/08/21 -?-?-?-?-?-?-?-?-?-?-?-?- 34w 2d 305 lb 6 oz (+33 lb 6 oz) 106/70 Negative -?-?-?-?-?-?-?-?-?-?-?-?- Negative 140 -?-?-?-?-?-?-?-?-?-?-?-?- - BS managed b y MFM. doing well. no vb lof good fm no regular ctx 07/16/21 -?-?-?-?-?-?-?-?-?-?-?-?- 35w 3d 308 lb 4 oz (+36 lb 4 oz) 110/70 -?-?-?-?-?-?-?-?-?-?-?-?- 130 -?-?-?-?-?-?-?-?-?-?-?-?- SM- nst SM- nst no vb lof good fm no regular ctx 07/29/21 -?-?-?-?-?-?-?-?-?-?-?-?- 37w 2d 315 lb (+43 lb) 122/81 Negative -?-?-?-?-?-?-?-?-?-?-?-?- Negative 130 -?-?-?-?-?-?-?-?-?-?-?-?- SM- no vb lof go od fm no regular ctx nst reactive saw mfm monday08/06/21 -?-?-?-?-?-?-?-?-?-?-?-?- 38w 3d 315 lb (+43 lb) 120/78 Negative -?-?-?-?-?-?-?-?-?-?--?-?- Negative 130 -?-?-?-?-?-?-?-?-?-?-?-?- SM- no vb lof go od fm no regular ctx discussed IOL 39 08/08/21 -?-?-?-?-?-?-?-?-?-?-?-?- 38w 6d 316 lb 6.4 oz (+44 lb 6.4 oz) 141/68 -?-?-?-?-?-?-?-?-?-?-?-?- -?-?-?-?-?-?-?-?-?-?-?-?- 08/09/21 -?-?-?-?-?-?-?-?-?-?-?-?- 38w 6d 316 lb 9.341 oz (+44 lb 9.341 oz) 131/74 138/74 143/85 124/63 122/57 125/59 130/63 119/55 116/56 114/53 122/59 116/70 113/62 118/59 133/63 128/66 136/76 128/75 144/71 132/67 -?-?-?-?-?-?-?-?-?-?-?-?- -?-?-?-?-?-?-?-?-?-?-?-?- NST FHR Rate Baby A Baseline: 140 Variability:: Moderate Accelerations:: 15 x 15 Decelerations:: None NST Reactive:: Yes FHR Category:: Category I Uterine Activity:: q3-5 ROS Constitutional Constitutional: Reports systems reviewed and no addt'l complaints, except as documented ENT HEENT: Reports systems reviewed and no addt'l complaints, except as documented Cardiovascular Cardiovascular: Reports systems reviewed and no addt'l complaints, except as documented Respiratory/Chest Respiratory/Chest: Reports systems reviewed and no addt'l complaints, except as documented Gastrointestinal Gastrointestinal: Reports systems reviewed and no addt'l complaints, except as documented and nausea; Denies abdominal pain Genitourinary Genitourinary: Reports systems reviewed and no addt'l complaints, except as documented, contractions Details: present and frequency (regular ) and movement Details: present Musculoskeletal Musculoskeletal: Reports systems reviewed and no addt'l complaints, except as documented Integumentary Integumentary: Reports as per HPI Neurologic Neurologic: Reports systems reviewed and no addt'l complaints, except as documented Endocrine Endocrinology: Reports systems reviewed and no addt'l complaints, except as documented Vital Signs Vital Signs Vital Signs: 08/09/21 09:44 08/09/21 11:02 08/09/21 11:04 Temperature 98.3 F Temperature Source Temporal Pulse Rate 88 85 91 Blood Pressure 131/74 H 138/74 H BP Systolic 131 138 BP Diastolic 74 74 Pulse Ox 95 08/09/21 12:31 08/09/21 12:35 08/09/21 12:36 Temperature 97.6 F L Temperature Source Pulse Rate 102 H 94 Blood Pressure 143/85 H BP Systolic 143 BP Diastolic 85 Pulse Ox 99 96 08/09/21 12:41 08/09/21 12:43 08/09/21 12:46 Temperature Temperature Source Pulse Rate 88 91 Blood Pressure 124/63 H BP Systolic 124 BP Diastolic 63 Pulse Ox 97 97 08/09/21 12:47 08/09/21 12:51 08/09/21 12:56 Temperature Temperature Source Pulse Rate 96 92 86 Blood Pressure 122/57 H 125/59 H BP Systolic 122 125 BP Diastolic 57 59 Pulse Ox 98 98 08/09/21 12:57 08/09/21 13:01 08/09/21 13:04 Temperature Temperature Source Pulse Rate 92 98 96 Blood Pressure 130/63 H 119/55 L BP Systolic 130 119 BP Diastolic 63 55 Pulse Ox 92 98 93 08/09/21 13:06 08/09/21 13:11 08/09/21 13:16 Temperature Temperature Source Pulse Rate 95 83 94 Blood Pressure 116/56 L 114/53 L BP Systolic 116 114 BP Diastolic 56 53 Pulse Ox 98 99 99 08/09/21 13:21 08/09/21 14:20 08/09/21 14:21 Temperature Temperature Source Pulse Rate 77 93 Blood Pressure 122/59 H BP Systolic 122 BP Diastolic 59 Pulse Ox 98 99 08/09/21 15:38 08/09/21 15:39 08/09/21 16:55 Temperature Temperature Source Pulse Rate 94 99 114 H Blood Pressure 116/70 113/62 BP Systolic 116 113 BP Diastolic 70 62 Pulse Ox 97 08/09/21 16:56 08/09/21 17:37 08/09/21 19:33 Temperature 97.6 F L 98.2 F Temperature Source Temporal Temporal Pulse Rate 105 H Blood Pressure 118/59 L BP Systolic 118 BP Diastolic 59 Pulse Ox 98 08/09/21 19:35 08/09/21 20:19 08/09/21 20:20 Temperature 97.9 F Temperature Source Temporal Pulse Rate 94 91 Blood Pressure 133/63 H 128/66 H BP Systolic 133 128 BP Diastolic 63 66 Pulse Ox 96 08/09/21 21:07 08/09/21 21:08 08/09/21 22:09 Temperature 98.4 F Temperature Source Temporal Pulse Rate 95 88 Blood Pressure 136/76 H 128/75 H BP Systolic 136 128 BP Diastolic 76 75 Pulse Ox 97 08/09/21 22:10 08/09/21 23:09 08/09/21 23:10 Temperature 98.3 F 98.2 F Temperature Source Temporal Temporal Pulse Rate 99 100 Blood Pressure 144/71 H BP Systolic 144 BP Diastolic 71 Pulse Ox 97 96 08/10/21 00:10 08/10/21 00:11 08/10/21 01:14 Temperature 98.2 F 98.3 F Temperature Source Temporal Temporal Pulse Rate 89 89 Blood Pressure 132/67 H BP Systolic 132 BP Diastolic 67 Pulse Ox 96 Weight Weight: 316 lb 9.341 oz Body Mass Index (BMI) 52.7 Physical Exam Const alert, oriented x3 and healthy appearing Constitutional Narrative: uncomfortable with contractions HEENT normocephalic and moist oral mucous membranes Head and Scalp: atraumatic Neck full ROM, no lymphadenopathy, supple and thyroid normal General: trachea midline Thyroid: thyroid normal Lymph Lymphatic: no lymphadenopathy noted Chest inspection of chest normal Resp normal respiratory effort Cardio regular rate GI normal to inspection, nondistended, normoactive bowel sounds, soft to palpation and non-tender Inspection: gravid external exam normal Bimanual Exam - Vag & Uterus: uterus non-tender Manual OB Exam: estimated gestational size appropriate, presentation cephalic, dilated 4, effaced 80 and station -1 Extremity normal to inspection General Extremity: Negative for edema Skin no rashes or lesions noted Neuro deep tendon reflexes 2+ bilaterally Motor Exam: strength 5/5 throughout and clonus absent Psych mental status grossly normal Labs Labs Labs: Blood Type A POSITIVE Antibody Screen NEGATIVE Hct 37.4 % (37-47) Hgb 11.9 g/dL (12.0-15.0) L Pap Smear Negative Obstetrics US Syphilis Total Ab Non-reactive Rubella IgG Antibody Reactive (Nonreactive) Hep Bs Antigen Non-Reactive (Nonreactive) Neisseria gonorrhoeae DNA (BRITANY) Negative (Negative) HIV 1&2 Antibody Non-Reactive (Nonreactive) Miscellaneous Test Assessment & Plan (1) Multiple thyroid nodules: COMMENT: bloodwork and imaging ordered-WNL. No repeat done X 1 year (2) : QUALIFIERS: Weeks of gestation: 37 weeks Qualified Code(s): Z3A.37 - 37 weeks gestation of COMMENT: covid neg. test, declines carrier, AFP-negative, low risk NIPT; NL anatomy and nl echo. (3) Supervision of high risk , antepartum: COMMENT: PRR DARYN 08/17/21 girl Damari Spouse: Ze (4) Anxiety: COMMENT: No meds (5) Family history of neural tube defect: COMMENT: Sister with encephalocele. afp negative. folic acid supplement. (6) Positive GBS test: COMMENT: positive gbs in urine. PCN in labor (7) Diabetes type 1, controlled: QUALIFIERS: Diabetes mellitus complication status: without complication Qualified Code(s): E10.9 - Type 1 diabetes mellitus without complications COMMENT: MFM following. growth every 4 weeks, twice weekly surveillance and daily kick counts starting at 32 weeks. delivery at 39 weeks. (8) SROM (spontaneous rupture of membranes): COMMENT: active labor pit prn epi prn PLAN: see above plan comments for a/p details
--- NOTE | 2021-08-10 01:19 | NURSING ---
bedside bgt 108, per diabetic protocol insulin infusion stays at same rate of 2.87 units/hr. verified with Marin Coreas RN
--- NOTE | 2021-08-10 01:23 | PCM.PN.OB ---
Subjective Subjective complete since 1030, poushing for an hour and a half and 0 to +1 station, good maternal effort current tracing: FHT: 140 Moderate variability reactive intermittent early decelerations category I tracing [place]: q2-3 Contractions reviewed tracing abnormalities since last note: A/P: continue pushing at this time Objective Data Objective Data Vital Signs: Vital Signs Temp Pulse BP Pulse Ox 98.3 F 89 132/67 H 96 08/10/21 01:14 08/10/21 00:11 08/10/21 00:10 08/10/21 00:11 Weight: 316 lb 9.341 oz Body Mass Index (BMI) 52.7 Intake & Output: Intake and Output for Last 24 Hours 08/08/21 08/09/21 08/10/21 23:59 23:59 23:59 Intake Total 3545.37 / 3545.37 Output Total 400 / 400 Balance 3145.37 / 3145.37 Lab / Micro Data Result Diagrams: 08/09/21 10:25 Labs: Laboratory Results - last 24 hr 08/09/21 09:40: Vag Amniotic Fld Detect POSITIVE H 08/09/21 10:25: WBC 11.5 H, RBC 4.85, Hgb 11.9 L, Hct 37.4, MCV 77.1 L, MCH 24.5 L, MCHC 31.8 L, RDW Std Deviation 41.1, RDW Coeff of [place] 15.1 H, Plt Count 255, MPV 11.4, Immature Gran % (Auto) 0.500, Neut % (Auto) 78.7 H, Lymph % (Auto) 14.2 L, [place] % (Auto) 5.8, Eos % (Auto) 0.5, Baso % (Auto) 0.3, Absolute Neuts (auto) 9.1 H, Absolute Lymphs (auto) 1.63, Nucleated RBC % 0 08/09/21 10:25: Blood Type A POSITIVE, Antibody Screen NEGATIVE 08/09/21 11:01: POC Glucose 133 H 08/09/21 12:05: POC Glucose 161 H 08/09/21 13:16: POC Glucose 159 H 08/09/21 14:15: POC Glucose 166 H 08/09/21 15:14: POC Glucose 161 H 08/09/21 16:19: POC Glucose 144 H 08/09/21 17:18: POC Glucose 111 H 08/09/21 18:17: POC Glucose 86 08/09/21 18:48: POC Glucose 95 08/09/21 19:19: POC Glucose 103 08/09/21 20:17: POC Glucose 110 08/09/21 21:14: POC Glucose 126 H 08/09/21 22:13: POC Glucose 118 H 08/09/21 23:16: POC Glucose 123 H
[2021-08-10 01:30] LABS: Bedside Glucose 108 mg/dL (70-110)
[2021-08-10 01:30] LABS: Bedside Glucose 135 mg/dL (70-110)
--- NOTE | 2021-08-10 02:20 | NURSING ---
bedside bgt 87, per protocol insulin infusion rate decreased by half. insulin infusion reviewed and rate of 1.43 verified with Julisa Son RN.
[2021-08-10] MEDS: fentaNYL-bupivacaine (epidural) 100 ML BAG EPIDURAL (02:54)
--- NOTE | 2021-08-10 03:21 | NURSING ---
bedside bgt 97, per protocol insulin infusion decreased by 50% to 0.71 units/hr, verfified with MERY Coreas.
[2021-08-10] MEDS: Oxytocin 30 units/NS 500 ml 30 UNITS/500 ML IV.SOLN 334 UNITS IV (03:58)
--- NOTE | 2021-08-10 04:05 | NURSING ---
insulin infusion discontinued per Dr. Andrew at 0357 following delivery. will check bgt in one hour per Dr. Andrew
--- NOTE | 2021-08-10 04:11 | EX.PCM.OBRPT ---
Assessment & Plan (1) Vaginal delivery: COMMENT: IAL SM girl Hui Napier Class B diabetes (2) Diabetes type 1, controlled: QUALIFIERS: Diabetes mellitus complication status: without complication Qualified Code(s): E10.9 - Type 1 diabetes mellitus without complications COMMENT: MFM following. growth every 4 weeks, twice weekly surveillance and daily kick counts starting at 32 weeks. delivery at 39 weeks. (3) Positive GBS test: COMMENT: positive gbs in urine. PCN in labor (4) Anxiety: COMMENT: No meds (5) Family history of neural tube defect: COMMENT: Sister with encephalocele. afp negative. folic acid supplement. (6) Supervision of high risk , antepartum: COMMENT: PRR DARYN 08/17/21 sarina Wetzel Spouse: Ze (7) : QUALIFIERS: Weeks of gestation: 37 weeks Qualified Code(s): Z3A.37 - 37 weeks gestation of COMMENT: covid neg. test, declines carrier, AFP-negative, low risk NIPT; NL anatomy and nl echo. (8) Multiple thyroid nodules: COMMENT: bloodwork and imaging ordered-WNL. No repeat done X 1 year (9) SROM (spontaneous rupture of membranes): COMMENT: active labor pit prn epi prn Maternal Data Information DARYN Calculator Estimated Delivery Date Method Current WG Current Estimate 08/17/21 Ultrasound #1 39w 0d Other Estimates 08/06/21 LMP (Certain) 40w 4d Vaginal Delivery Operative Information Pre-Operative Diagnosis: IAL Post-Operative Diagnosis: same Surgery / Procedure Performed: Spontaneous Vaginal Delivery Type of Anesthesia: Epidural Special Medications: none Estimated Blood Loss: 300 Fluids Replaced: crystalloid Findings Description of Procedure: Patient began pushing and delivered the head in the JOE presentation. The head was delivered atraumatically . The anterior and posterior shoulders delivered without complication followed by the rest of the and the was placed on the maternal abdomen. Delayed cord clamping was not employed due to thick meconium and low tone noted at therefore cord was quickly clamped and cut and was passed off to awaiting nurse and metal model maker. gentle traction was applied to the cord and the placenta delivered spontaneously immediately following it was noted to be intact with three-vessel cord. The perineum and vagina were inspected and noted to have a second-degree perineal laceration that was repaired in the usual fashion with 3-0 Vicryl Rapide. EBL was 300 cc. Patient and tolerated delivery well. Presentation: JERRY Amniotic Membrane Rupture Type: Spontaneous Amniotic Fluid Description: Moderate meconium Placental Delivery Description: Spontaneous Placenta Disposition: [facility] Cord Vessel Description: 3 Vessels Cord Entanglement: None Delayed Cord Clamping: Yes Post Vaginal Delivery Medications Given After Delivery: IV Pitocin Episiotomy Description: None Laceration: Perineal Extension/lac and 2nd degree Complication Complications: None Procedures Urinary/Genital [id number]: [id number] Vaginal Delivery+ Care([facility])
[2021-08-10] MEDS: Lactated Ringers 500 ML 999 ML IV (04:52)
[2021-08-10 05:06] LABS: Bedside Glucose 97 mg/dL (70-110)
[2021-08-10 05:06] LABS: Bedside Glucose 148 mg/dL (70-110)
[2021-08-10 05:06] LABS: Bedside Glucose 87 mg/dL (70-110)
[2021-08-10] MEDS: 0.9% Saline Lock 10 ML Syringe IV ×3 (06:39→15:38)
[2021-08-10] MEDS: Acetaminophen 500 MG Tablet 1000 MG PO ×2 (07:01→15:38)
[2021-08-10] MEDS: Insulin Lispro 100 UNIT/ML INSULN.PEN 12 UNIT SC (08:55)
[2021-08-10 09:11] LABS: Bedside Glucose 229 mg/dL (70-110)
[2021-08-10] MEDS: Naproxen 500 MG Tablet PO (12:07)
[2021-08-10] MEDS: Insulin Lispro 100 UNIT/ML INSULN.PEN 10 UNIT SC ×2 (12:56→17:41)
[2021-08-10] MEDS: Cholecalciferol (VIT D3) 25 MCG TABLET (1,000 UNITS) PO (16:42)
[2021-08-10] MEDS: Prenatal Vits Tablet 200 TABLET PO (16:42)
[2021-08-10 18:07] LABS: Bedside Glucose 106 mg/dL (70-110)
[2021-08-10 18:11] LABS: Bedside Glucose 100 mg/dL (70-110)
[2021-08-10 21:45] LABS: Bedside Glucose 59 mg/dL (70-110)
--- NOTE | 2021-08-10 21:45 | NURSING ---
bedside bg 59, pt asymptomatic. 4 oz apple juice given at this time.
--- NOTE | 2021-08-10 22:00 | NURSING ---
bedside bgt 60, pt remains asymptomatic, per protocol will re check bgt in 15 minutes.
--- NOTE | 2021-08-10 22:20 | NURSING ---
snack given with HS dose of lantus
[2021-08-10 22:30] LABS: Bedside Glucose 82 mg/dL (70-110)
[2021-08-10 22:30] LABS: Bedside Glucose 60 mg/dL (70-110)
[2021-08-11] VITALS (8 sets, daily range): BP systolic 120–143; BP diastolic 62–85; PULSE 84–102; RESP 16–20; TEMP 36.3–36.6; O2SAT 96–97
[2021-08-11] MEDS: Acetaminophen 500 MG Tablet 1000 MG PO ×2 (00:27→08:11)
[2021-08-11] MEDS: Naproxen 500 MG Tablet PO (04:35)
--- NOTE | 2021-08-11 07:46 | PCM.PN.OB ---
Subjective Subjective Patient doing well without complaints. Tolerating PO. Ambulating and voiding without difficulty. Feeding well. Denies chest pain, shortness of breath, calf pain/swelling, fevers, chills, lightheadedness. Objective Data Objective Data Vital Signs: Vital Signs Temp Pulse Resp BP Pulse Ox 97.6 F L 95 18 130/63 H 96 08/11/21 04:37 08/11/21 04:37 08/11/21 04:37 08/11/21 04:37 08/10/21 06:00 Oxygen Delivery Method Room Air Weight: 316 lb 9.341 oz Body Mass Index (BMI) 52.7 Intake & Output: Intake and Output for Last 24 Hours 08/09/21 08/10/21 08/11/21 23:59 23:59 23:59 Intake Total 3545.37 / 3545.37 1955.41 / 1955.41 Output Total 400 / 400 250 / 250 Balance 3145.37 / 3145.37 1705.41 / 1705.41 Lab / Micro Data Result Diagrams: 08/09/21 10:25 Labs: Laboratory Results - last 24 hr 08/10/21 08:52: POC Glucose 229 H 08/10/21 12:54: POC Glucose 106 08/10/21 17:39: POC Glucose 100 08/10/21 21:39: POC Glucose 59 L 08/10/21 21:59: POC Glucose 60 L 08/10/21 22:20: POC Glucose 82 Physical Exam Const alert and oriented x3 HEENT normocephalic Eyes PERRL Neck full ROM Resp normal respiratory effort GI soft to palpation GI Narrative: FF below U Assessment & Plan (1) Vaginal delivery: COMMENT: JOLENE MAC girl Hui Napier Class B diabetes shirt (2) Diabetes type 1, controlled: QUALIFIERS: Diabetes mellitus complication status: without complication Qualified Code(s): E10.9 - Type 1 diabetes mellitus without complications COMMENT: MFM following. growth every 4 weeks, twice weekly surveillance and daily kick counts starting at 32 weeks. delivery at 39 weeks. PLAN: s/p PPD # 1 1. routine post delivery care 2. pumping and feeding 3. rh positive 4. rubella immune 5. glucose stable 6. home today
[2021-08-11] MEDS: Senna/Docusate Sodium 1 Tablet PO (08:11)
[2021-08-11 08:21] LABS: Bedside Glucose 129 mg/dL (70-110)
[2021-08-11] MEDS: Insulin Lispro 100 UNIT/ML INSULN.PEN 12 UNIT SC (08:38)
[2021-08-11] MEDS: Cholecalciferol (VIT D3) 25 MCG TABLET (1,000 UNITS) PO (11:21)
[2021-08-11] MEDS: Prenatal Vits Tablet 200 TABLET PO (11:21)
== END 2021-08-11 13:20 | disposition home or self-care (01) | DRG 560 ==
LOC: WP 10:36 → WPOUT 08-10 08:51 → WP 08-10 08:51
PROVIDERS: Admitting Provider Obstetrics & Gynecology; PCP Internal Medicine; Referring Provider Obstetrics & Gynecology; Visit Provider Obstetrics & Gynecology
DX: O24.02 Pre-existing type 1 diabetes mellitus, in childbirth (principal); Z37.0 Single live birth; E04.2 Nontoxic multinodular goiter; Z79.4 Long term (current) use of insulin; K21.9 Gastro-esophageal reflux disease without esophagitis; O70.1 Second degree perineal laceration during delivery; O77.0 Labor and delivery complicated by meconium in amniotic fluid; O99.284 Endocrine, nutritional and metabolic diseases complicating childbirth; O76 Abnormality in fetal heart rate and rhythm complicating labor and delivery; O99.824 Streptococcus B carrier state complicating childbirth; Z3A.39 39 weeks gestation of pregnancy; Z79.82 Long term (current) use of aspirin
CPT/HCPCS: 59025; 59050; 82962; 84112; 85025; 86850; 86900; 86901; 87635; 99218; J7040; J7120; A4216; G0378; J2405; J7799; U0003; U0005

== ENCOUNTER 2021-09-24 12:37 | Outpatient (CLI) | payer MEDICAID, SELFPAY ==
[2021-09-24 14:13] LABS: Estradiol 47.9 pg/mL; Follicle Stimulating Hormone 8.2 mIU/mL; Prolactin 17.2 ng/mL; T4 Free Direct 1.05 ng/dL (0.76-1.46); Thyroid Stim Hormone (TSH) 0.45 uIU/mL (0.358-3.74)
== END 2021-09-24 23:59 | disposition home or self-care (01) ==
PROVIDERS: PCP Internal Medicine; Referring Provider Obstetrics & Gynecology; Visit Provider Obstetrics & Gynecology
DX: R51.9 Headache, unspecified (principal); G89.29 Other chronic pain; E01.0 Iodine-deficiency related diffuse (endemic) goiter
CPT/HCPCS: 36415; 82670; 83001; 84146; 84439; 84443

== ENCOUNTER 2021-09-30 11:39 | Outpatient (CLI) | payer MEDICAID, SELFPAY ==
--- NOTE | 2021-09-30 11:43 | US_ITS ---
STUDY: THYROID ULTRASOUND REASON FOR EXAM: Female, 26 years old. Thyromegaly. TECHNIQUE: Ultrasound evaluation of the thyroid was performed with real-time and static tate-scale imaging. COMPARISON: Comparison is made with prior study dated 10/25/2018. FINDINGS: RIGHT LOBE: The right lobe of the thyroid gland is enlarged and measures 7 cm x 2.1 cm x 1.6 cm. There is a heterogeneous echotexture. Multiple small nodules are seen throughout the right lobe. The largest is in the mid pole and measures 7 mm x 7 mm x 7 mm. LEFT LOBE: The left lobe of the thyroid gland is enlarged and measures 6.4 cm x 2.5 cm x 1.8 cm. There is a heterogeneous echotexture. Multiple nodules are seen throughout the left lobe. The largest nodule measures 1.8 SANTY by 1.6 x 1.2 cm. This is unchanged. ISTHMUS: The isthmus is enlarged and measures 9 mm. The regional lymph nodes are normal. US/Thyroid IMPRESSION: Thyromegaly. Stable appearance of both lobes. Electronically Signed: Kingsley Tubbs MD at 12:45 EDT ,
== END 2021-09-30 23:59 | disposition home or self-care (01) ==
LOC: US 11:41
PROVIDERS: PCP Internal Medicine; Referring Provider Obstetrics & Gynecology; Visit Provider Obstetrics & Gynecology
DX: E01.0 Iodine-deficiency related diffuse (endemic) goiter (principal)
CPT/HCPCS: 76536

== ENCOUNTER 2022-09-01 02:10 | Observation (INO) | payer MEDICAID, SELFPAY ==
[2022-09-01] VITALS (14 sets, daily range): BP systolic 111–134; BP diastolic 65–85; PULSE 94–122; RESP 16–18; TEMP 36.4–37.3; O2SAT 93–100; BMI 47.7
[2022-09-01] MEDS: 0.9% Normal Saline 1,000 ML 125 ML IV (02:30)
[2022-09-01] MEDS: 0.9% Saline Lock 10 ML Syringe IV (02:50)
[2022-09-01] MEDS: HYDROmorphone 0.5 MG/0.5 ML SYRINGE IV (02:50)
[2022-09-01 03:25] LABS: Bedside Glucose 276 mg/dL (74-106)
--- NOTE | 2022-09-01 04:59 | PN.HOSP_ITS ---
Reason for Visit Reason for Visit: Appendicitis Subjective Subjective Patient is a 27-year-old female with a significant history of hypothyroidism; depression/anxiety and type 1 diabetes who was transferred from outside hospital ED ([facility]) for management of appendicitis. Patient reports that a day of presentation to [facility] ED she had excruciating upon abdominal pain that radiated to her right upper quadrant into her left inguinal area. She described the pain as a cramping. The pain has been progressively getting worse. She takes some Ultram for left knee pain at home and Ultram helpful for pain. She denies any aggravating factors to the pain. Objective Data Objective Data Vital Signs: Vital Signs Temp Pulse Resp BP Pulse Ox O2 Del Method 98.3 F 104 H 18 127/79 H 97 Room Air 09/01/22 02:25 09/01/22 02:25 09/01/22 02:25 09/01/22 02:25 09/01/22 02:25 09/01/22 02:25 Oxygen Delivery Method Room Air Weight: 130.3 kg Body Mass Index (BMI) 47.7 Lab / Micro Data Labs: Laboratory Results - last 24 hr 09/01/22 03:05: POC Glucose 276 H Physical Exam Narrative Physical exam: General: Well-nourished, well-developed. Head: Normocephalic, atraumatic, no tenderness Eyes: Vision is grossly intact. EOMI ENT, no trauma, moist mucous membranes, no rhinorrhea Neck: Nontender, No thyromegaly. CVS: Regular rate and rhythm. S1-S2 present. No murmur, gallop or rub. Respiratory : clear to auscultation bilaterally, chest wall nontender, no wheezing Abdomen: Soft, nontender, nondistended, normal bowel sounds, no masses : Deferred Back: Nontender, no CVA tenderness, no midline spinal tenderness, deformities, step-offs Extremities: Nontender full range of motion, no trauma Skin: Normal color, no trauma, abrasions Neuro: Alert, oriented, cranial nerves II through XII grossly intact. Psychiatry: Normal mood. Normal affect. Not depressed. Not anxious. Assessment & Plan Assessment/Plan (1) Appendicitis: (2) Diabetes mellitus type 1: PLAN: Plan Appendicitis Management by general surgery. Type 1 diabetes with hyperglycemia Accu-Cheks ordered on transfer to the Hospital returned as 276. At home patient takes 38 units of basal insulin twice daily. Also she also take 40 units of Humalog with each meal. At times she eats 1-2 times per day. While n.p.o. for surgery basal insulin 15 units twice daily ordered; and correction scale insulin ordered for every 4 hours. Accu-Chek every 4 hours. Morbid Obesity: BMI: 47.8 kg/m?. Complicates care. Lifestyle modification recommended. Hypothyroidism/depression anxiety: While n.p.o. Home sertraline; levothyroxine; trazodone and tramadol for chronic pain is on hold. Resume when appropriate. DVT Prophylaxis: SCD ordered Charges/Coding Visit Charges Inpatient E&M: 26189 Subs Hosp L2
[2022-09-01] MEDS: Insulin Glargine-YFGN 100 UNIT/ML Pen 15 UNIT SC (05:29)
[2022-09-01] MEDS: Insulin Lispro 100 UNIT/ML INSULN.PEN SC ×3 (05:30→17:05)
[2022-09-01 05:50] LABS: Bedside Glucose 265 mg/dL (74-106)
--- NOTE | 2022-09-01 06:29 | PCM.HP.STD ---
HPI - General General Date of Admission: 09/01/22 HPI Narrative RACHELE BEEBE, is a 27 F who presents to [facility] on direct transfer from [facility] after she was diagnosed there with acute appendicitis. She reports experiencing upper abdominal pain just over 2 days ago. At first the pain was not very intense but then yesterday she began chilling and experiencing intensification of the pain so she decided to present for evaluation. She notes some associated nausea but no vomiting. She reports that her bowel movements have been within normal limits. Given her nausea she has not felt like eating much lately. She notes that urination has been normal. Patient has a history of type 1 diabetes and admits that her glucose control has not been what she wants and she reports that her last hemoglobin A1c was over 7. He states that this is on account of having to be primary caregiver for both her mother and her 1-year-old daughter. Outside of this issue she reports some history of thyromegaly and hypothyroidism as well as anxiety. She denies any prior abdominal surgical history. [facility] Medical History (Updated 09/01/22 @ 05:[address] Dioni White MD) Anxiety and depression Diabetes mellitus Diabetes type 1, controlled GERD (gastroesophageal reflux disease) Hypothyroidism Infertility Positive GBS test Vaginal delivery Home Medications cholecalciferol (vitamin D3) 25 mcg (1,000 unit) capsule 1,000 unit PO QDAY 01/08/18 [History Last Taken Unknown] docosahexaenoic acid 200 mg capsule ( DHA) 200 mg PO DAILY 01/08/18 [History Last Taken Unknown] flash glucose sensor (FreeStyle Britney 2 Sensor kit) #2 ea 01/11/21 [Rx Last Taken Unknown] insulin lispro 100 unit/mL subcutaneous pen (Humalog KwikPen (U-100) Insulin) 40 unit subcut TID 07/08/21 [History Last Taken Unknown] insulin glargine 100 unit/mL (3 mL) subcutaneous pen (Lantus Solostar U-100 Insulin) 38 unit subcut BID e10.9 09/24/21 [History Last Taken Unknown] levothyroxine 100 mcg tablet 100 mcg PO DAILY 09/01/22 [History Last Taken Unknown] sertraline 50 mg tablet (Zoloft) 50 mg PO QDAY PRN Anxiety 09/01/22 [History Last Taken Unknown] tramadol 50 mg tablet 50 mg PO TID PRN Pain 09/01/22 [History Last Taken Unknown] trazodone 50 mg tablet 50 mg PO QHS PRN Sleep 09/01/22 [History Last Taken Unknown] Allergy/AdvReac Type Severity Reaction Status Date / Time cefadroxil Allergy Unknown Unknown Verified 09/01/22 02:18 metformin [From Glucophage] Allergy Rash Verified 09/01/22 02:18 acetaminophen AdvReac Hives Verified 09/01/22 02:18 [From Capital with Codeine] cefazolin [From Kefzol] AdvReac Nausea/Vom/ Verified 09/01/22 02:18 Diarrhea codeine AdvReac Hives Verified 09/01/22 02:18 [From [employer] with Codeine] Family History Grandfather Liver cancer Grandmother Lymphoma Unknown Diabetes Hypertension Cancer Arthritis Mother Diabetes Asthma Arthritis Sister Diabetes Surgical History H/O removal of cyst History of placement of ear tubes Social History adopted: No household members: spouse and other details: mother number of children: 0 current occupational status: unemployed Smoking Status: Never smoker alcohol intake: current substance use type: does not use caffeine: Yes (occasionally) what type of physical activity do you participate in: none seatbelt use: always do you feel safe at home: Yes additional social history: [employer] Patient takes care of her mom TREVON Constitutional Constitutional: Reports anorexia and chills; Denies fever(s) Gastrointestinal Gastrointestinal: Reports abdominal pain and nausea; Denies constipation, diarrhea or vomiting Vital Signs Vital Signs Vital Signs: 09/01/22 02:25 09/01/22 02:47 09/01/22 06:24 Temperature 98.3 F 98 F Temperature Source Oral Oral Pulse Rate 104 H 122 H Pulse Strength Normal (2+) Respiratory Rate 18 18 Blood Pressure 127/79 H 126/65 H Blood Pressure Mean 95 85 Blood Pressure Source Monitor Blood Pressure Position Semi-Fowlers Semi-Fowlers Blood Pressure Location Right Arm Right Arm Pulse Ox 97 99 Oxygen Delivery Method Room Air Room Air Weight Weight: 287 lb 4.197 oz Body Mass Index (BMI) 47.7 Physical Exam Resp normal respiratory effort GI GI Narrative: Morbidly obese, no scars, soft, tender to palpation over McBurney's point. Negative Rovsing negative psoas, mildly positive obturator sign Results Lab / Micro Data Labs: Laboratory Results - last 24 hr 09/01/22 03:05: POC Glucose 276 H 09/01/22 05:29: POC Glucose 265 H Assessment & Plan Assessment/Plan (1) Appendicitis: PLAN: This is a 27-year-old female, with past medical history of type 1 diabetes, who has had just over 48 hours of abdominal discomfort and associated nausea and anorexia and now a diagnosis of acute, uncomplicated appendicitis (per CT imaging at outside hospital). Patient was administered IV antibiotics prior to transfer and these were continued on arrival to our facility. I have reviewed the CT imaging independently. Based on the patient's time course, would like to proceed emergently to the operating room for laparoscopic appendectomy. The recommendation was given to the patient and the procedure and post procedure expectations were reviewed. She provides her consent to proceed as described. Charges/Coding Visit Charges Inpatient E&M: 72814 Init Hosp L2
--- NOTE | 2022-09-01 06:37 | NURSING ---
Pt to or. permit signed
--- NOTE | 2022-09-01 06:46 | NURSING ---
Pt ring put in med drawer and locked up
[2022-09-01] MEDS: 0.9% Normal Saline 1,000 ML 15 ML IV (06:50)
--- NOTE | 2022-09-01 06:54 | PN.HOSP_ITS ---
Reason for Visit Reason for Visit: Abdominal pain Subjective Subjective Patient is a 27-year-old type I diabetic who presented to [facility] emergency department for abdominal pain. At the time of presentation she had excruciating abdominal pain in the right lower quadrant. She described the pain as cramping in nature and it was progressively getting worse. She reportedly took some Ultram for which she takes at home for her left knee pain and it was helpful minimally. Her symptoms started 2 days prior to presentation and she indicated the pain was not very intense initially but she began having worsening pain and chilling so she presented for evaluation. She had some associated nausea and vomiting as well her bowel movements were reportedly and within normal limits. P.o. intake has been decreased. She does report that her last hemoglobin A1c was over 7 and her blood sugars have been less controlled than she would like them to be. She was taken emergently to the operating room for a laparoscopic appendectomy by Dr. Dick and we were consulted for medical management with regards predominantly for her diabetes. Objective Data Objective Data Vital Signs: Vital Signs Temp Pulse Resp BP Pulse Ox O2 Del Method 98 F 122 H 18 126/65 H 99 Room Air 09/01/22 06:24 09/01/22 06:24 09/01/22 06:24 09/01/22 06:24 09/01/22 06:24 09/01/22 06:24 Oxygen Delivery Method Room Air Weight: 130.3 kg Body Mass Index (BMI) 47.7 Intake & Output: Intake and Output for Last 24 Hours 08/30/22 08/31/22 09/01/22 23:59 23:59 23:59 Intake Total 200 / 200 Balance 200 / 200 Lab / Micro Data Result Diagrams: 09/01/22 06:30 Labs: Laboratory Results - last 24 hr 09/01/22 03:05: POC Glucose 276 H 09/01/22 05:29: POC Glucose 265 H Assessment & Plan Assessment/Plan (1) Diabetes mellitus type 1: (2) Appendicitis: PLAN: Plan Acute appendicitis -OR this morning for appendectomy per Dr. Dick -Pain management per Dr. Dick -Discontinue IV fluids once p.o. intake has been established -Recommend bowel regimen while patient requiring narcotics for pain DM-1 -Hemoglobin A1c is pending -Insulin at 15 units twice daily was ordered--> home dose is 38 units twice daily -Increase to 20 units twice daily while n.p.o. if p.o. diet initiated will need to increase to home dosing -Once p.o. diet initiated restart home lispro--> patient typically takes 40 units 3 times daily--> I will cut that dose in half to 20 units 3 times daily when initiated plus sliding scale and once p.o. diet is back to baseline reinitiate home dosing -When regular diet established please start carb controlled diet Hypothyroidism -TSH is pending -Continue home ride Chronic left knee pain -Restart home Ultram at discharge 50 mg 3 times daily Vitamin D deficiency -Continue home cholecalciferol Depression/insomnia -Continue home Zoloft -Continue home trazodone DVT prophylaxis -Chemoprophylaxis per primary -Would recommend SCDs while not on chemoprophylaxis -Early ambulation
[2022-09-01 07:17] LABS: Anion Gap 8 (5-15); BUN 7 mg/dL (7-18); Calcium,Total 8.6 mg/dL (8.5-10.1); Chloride 102 mmol/L (98-107); EST Glomerular Filtration Rate 106 mL/min (>60); Est Glom Filt Rate - Afr Amer 128 mL/min (>60); Estimated Creatinine Clearance 107.67 ml/min; Glucose 296 mg/dL (74-106); Sodium Level 136 mmol/L (136-145); Thyroid Stim Hormone (TSH) 6.24 uIU/mL (0.358-3.74)
--- NOTE | 2022-09-01 07:30 | APP_PTH ---
PATIENT: RACHELE BEEBE LOC: MS3 U#:[id number] AGE/SX: 27/F ROOM: SD315 RE09/01/[address]: Dr. Esteban Dick MD : 1995 BED: 1 DIS: 09/01/2022 SPEC #: [id number] RECD: 09/01/22 09:23 STATUS: EDGAR REMarcial #: [id number] PRAVEENA: 09/01/22 07:[address]: Esteban Dick DEPT: SURGICAL PATHOLOGY RECD BY: Sarah Cueva ENTERED: 09/01/22 10:02 SP TYPE: APPENDIX OTHR DR: MD Dr. Gabby Garrett DO Dr. Liza D Talampas, MD Tissues: Appendix, NOS Procedures: Surgery Specimen Level III HEADER OPERATION: Laparoscopic appendectomy PRE-OP DIAGNOSIS: Appendicitis TISSUE SUBMITTED: Appendix MICROSCOPIC DIAGNOSIS Appendix, appendectomy: Acute appendicitis and periappendicitis. See comment. KAYLA:duong 09/02/2022 COMMENT A benign cyst is noted close to serosal surface (0.2 cm in greatest dimension) most likely represents benign mesothelial cyst. MICROSCOPIC DESCRIPTION Slides are reviewed. GROSS DESCRIPTION Received in fixative is one container labeled with the patient's name and designated appendix. The specimen consists of an appendix measuring 6.0 cm in length and up to 0.6 cm in diameter. The attached periappendiceal adipose tissue measures 0.6 cm in width. The serosa is congested. No obvious perforation is identified. The lumen contains hemorrhagic material. No fecalith is identified. Pattern Vault Clerk sections are submitted in one cassette. / KAYLA:duong 09/01/2022 TC:2 CPT: 85444
[2022-09-01 07:55] LABS: Hemoglobin A1c 6.9 % (3.8-5.6)
--- NOTE | 2022-09-01 08:13 | PCM.OPRPT ---
Report of Operation Date of Procedure: 09/01/22 Pre-Operative Diagnosis: Acute appendicitis Post-Operative Diagnosis: Acute, uncomplicated appendicitis Surgery/Procedure Performed:: Laparoscopic appendectomy Description of Surgical Findings:: ? Mildly inflamed and dilated appendix Surgeon: Esteban Dick agricultural produce commission agent: Kamila Kidd Type of Anesthesia: General/Supplemental Anesthesiologist: Luis Patel Specimen's removed: appendix Estimated Blood Loss (mL): 5 Description of Procedure: After appropriate identification in the preoperative holding area, the patient was brought to the operating room and placed supine on the operating room table. Antibiotics had been preoperatively administered. Patient was then induced with general endotracheal anesthetic. A in and out urinary catheterization was performed under sterile technique due to the unknown status of patient's most recent voiding. The abdomen was prepped and draped in usual sterile fashion. Formal timeout was conducted to confirm both the patient and the procedure. A supraumbilical incision was made and carried down to the level of the fascia which was sharply opened. After opening the peritoneum in like fashion a finger sweep was made to confirm position, and a balloon trocar was placed and pneumoperitoneum was established to 15 mmHg. Patient was positioned in Trendelenburg with the left side down. 2 additional 5 mm trocars were placed in the left lower quadrant and suprapubic positions. The peritoneum was inspected and there are no signs of inadvertent injury from this Martinez entry. The appendix was visualized with mild inflammation. Using blunt laparoscopic dissection, a window was made in the mesoappendix adjacent to the appendiceal base. The mesoappendix was divided with application of a laparoscopic harmonic. Then the base of the appendix was sealed and amputated with the use of an Endo STEPHAN stapler. The appendix was placed in an Endo Catch bag. The staple line was inspected for hemostasis. After hemostasis was confirmed the appendix was removed from the umbilical port site. Fascia of the umbilical port site was closed in a [id number] fashion using #1 PDS under laparoscopic visualization with a Farrukh Carlton suture passer. Pneumoperitoneum was then evacuated. The port sites were infiltrated with 30 mL local anesthetic. The skin of each port site was closed with 4-0 Monocryl in a subcuticular fashion. Steri-Strips and OpSite dressings were applied. Patient tolerated procedure well without any apparent complications. They were awoken from general anesthetic without issue and transferred to post anesthesia care unit for ongoing recovery. Complications None Admit VTE Documentation VTE Mechan Device Prophylaxis: SCD's Procedures Digestive 40xxx-49xxx: 43611 Laparoscopy appendectomy
[2022-09-01] MEDS: Bupiv/Epi 0.25% 30 ML Vial (08:24)
[2022-09-01 09:50] LABS: Bedside Glucose 333 mg/dL (74-106)
[2022-09-01] MEDS: oxyCODONE 5 MG Tablet PO ×2 (11:07→17:02)
[2022-09-01] MEDS: Insulin Glargine-YFGN 100 UNIT/ML Pen 20 UNIT SC (11:08)
[2022-09-01 11:30] LABS: Bedside Glucose 363 mg/dL (74-106)
--- NOTE | 2022-09-01 16:56 | DCINST_ITS ---
Discharge Instructions Diet Discharge Diet: Carb Control Diet Activity Discharge Activity: May Not Drive (May not drive while taking narcotic pain medications) and May Shower (May begin showering 48hours postop. Please avoid baths or submerging surgical incisions before skin is completely healed.) May shower in (days): 2 May resume sexual activity in: 2 weeks Ice area for (Minutes): 20 Lifting Restrictions: Limit lifting to <15lbs for 2 weeks following surgery Dressing / Incision Call your doctor if your incision/area has: Sudden Increased Bleeding, Increased Pain/ Swelling, Increased Redness, Foul Smelling Discharge and Swelling at the incision site Call your doctor if you observe: Fever of 101 or Higher, Inability to urinate, Inability to have a bowel movement and Uncontrolled pain Suture Line Care: Avoid Pulling/Pushing Remove Dressing in: 2 days (Please leave steri strips (medical tape) in place until they fall off spontaneously or are removed at your follow-up appointment) Cleanse incision/area with: Keep Dressing Clean & Dry Follow Up Care Please Follow Up With: Esteban Dick MD When: 7 to 10 days postop Test Results: Test results from this visit will be discussed in further detail at your follow- up appointment, if applicable. Discharge Plan Admission Admit Date/Time: 09/01/22 02:10 Primary Reason for Your Visit: Acute appendicitis Attending Provider: Esteban Dick Primary Care Provider: Sasha Fuentes Consulting Providers: Gabby Melo ; Dioni White Discharge Orders/Prescriptions Prescriptions: New oxycodone 5 mg Tablet 5 mg PO Q6H PRN PRN (Reason: Pain Score 6-10) 3 Days Qty: 14 0RF Continued docosahexaenoic acid [ DHA] 200 mg capsule 200 mg PO DAILY cholecalciferol (vitamin D3) 1,000 unit capsule 1,000 unit PO QDAY insulin lispro [Humalog KwikPen Insulin] 100 unit/mL insulin pen 40 unit subcut TID Rx Instructions: 36 - 32 - 32 (DME) FreeStyle Britney 2 Sensor Kit See Rx Instructions .ROUTE .MEDSUPPLY Qty: 2 6RF Rx Instructions: As directed Lantus Solostar U-100 Insulin 100 unit/mL (3 mL) insulin pen 38 unit subcut BID Rx Instructions: 38U with meals and 38U QHS sertraline [Zoloft] 50 mg tablet 50 mg PO QDAY PRN (Reason: Anxiety) trazodone 50 mg tablet 50 mg PO QHS PRN (Reason: Sleep) Label Comments: TAKE 1 TABLET BY MOUTH ONCE DAILY AT BEDTIME tramadol 50 mg tablet 50 mg PO TID PRN (Reason: Pain) levothyroxine 100 mcg tablet 100 mcg PO DAILY Referrals / Follow Up: Sasha Fuentes MD [Primary Care Provider] - Disposition Disposition (needs filled in before D/C Order can be placed): Home, Self Care
--- NOTE | 2022-09-01 17:01 | DS.PCM_ITS ---
Providers Date of Admission: 09/01/22 Primary Care Physician: Dr. Sasha Fuentes MD Consultations 09/01/22 02:45 Consult: Hospitalist Routine Consulting Provider: Dioni White Reason for Consult: blood sugar control EMERGENT Consult: No MD Notified: Yes Date Notified: 09/01/22 Time Notified: 02:45 Method of Notification: Text Reason For Visit: APPENDICITIS Diagnosis Discharge Diagnosis (1) Diabetes mellitus type 1: Status: Acute Code(s): E10.9 - Type 1 diabetes mellitus without complications (2) Appendicitis: Status: Acute Code(s): K37 - Unspecified appendicitis Plan: This is a 27-year-old female, with past medical history of type 1 diabetes, who has had just over 48 hours of abdominal discomfort and associated nausea and anorexia and now a diagnosis of acute, uncomplicated appendicitis (per CT imaging at outside hospital). Patient was administered IV antibiotics prior to transfer and these were continued on arrival to our facility. I have reviewed the CT imaging independently. Based on the patient's time course, would like to proceed emergently to the operating room for laparoscopic appendectomy. The recommendation was given to the patient and the procedure and post procedure expectations were reviewed. She provides her consent to proceed as described. Medications at Discharge Home Medications cholecalciferol (vitamin D3) 25 mcg (1,000 unit) capsule 1,000 unit PO QDAY 01/08/18 docosahexaenoic acid 200 mg capsule ( DHA) 200 mg PO DAILY 01/08/18 flash glucose sensor (FreeStyle Britney 2 Sensor kit) #2 ea 01/11/21 insulin lispro 100 unit/mL subcutaneous pen (Humalog KwikPen (U-100) Insulin) 40 unit subcut TID 07/08/21 insulin glargine 100 unit/mL (3 mL) subcutaneous pen (Lantus Solostar U-100 Insulin) 38 unit subcut BID e10.9 09/24/21 levothyroxine 100 mcg tablet 100 mcg PO DAILY 09/01/22 oxycodone 5 mg tablet 5 mg PO Q6H PRN PRN Pain Score 6-10 3 days #14 tabs 09/01/22 sertraline 50 mg tablet (Zoloft) 50 mg PO QDAY PRN Anxiety 09/01/22 tramadol 50 mg tablet 50 mg PO TID PRN Pain 09/01/22 trazodone 50 mg tablet 50 mg PO QHS PRN Sleep 09/01/22 Hospital Course Operations appendectomy Summary of Care Provided Hospital Course: Patient a 27-year-old female that was transferred in as a direct admit from [facility] early this morning (09/01/2022) with diagnosis of acute appendicitis. Per CT imaging done at that outside facility patient's diagnosis was consistent with acute, uncomplicated appendicitis. Yet given the duration of her symptoms (greater than 48 hours) and her confirmatory exam, I made the decision to proceed emergently for laparoscopic appendectomy within hours of her arrival. This procedure proceeded in uncomplicated fashion the patient was admitted to the hospital [place] thereafter. She was successfully advanced to a clear liquid diet and we were able to achieve adequate pain control with oral pain medications. Given the uneventful notes of her procedure and these demonstrations of clinical progress, hospital discharge was offered and patient stated that she felt ready to return home. Outpatient follow-up was discussed as well as postoperative instructions. All questions were taken from both patient and her . Physical Exam Const alert, oriented x3, no apparent distress and well nourished GI GI Narrative: Obese but nondistended. Soft and appropriately tender to palpation (minimally so) Weight / BMI Weight Weight: 287 lb 4.197 oz Body Mass Index (BMI) 47.7 ABG / Lab / Microbiology Data Result Diagrams: 09/01/22 06:30 Laboratory: Laboratory Results - last 24 hr 09/01/22 03:05: POC Glucose 276 H 09/01/22 05:29: POC Glucose 265 H 09/01/22 06:30: Hemoglobin A1c 6.9 H 09/01/22 06:30: Sodium 136, Potassium 4.0, Chloride 102, Carbon Dioxide 26.0, Anion Gap 8, BUN 7, Creatinine 0.70, Estim Creat Clear Calc 107.67, Est GFR (MDRD) Af Amer 128, Est GFR (MDRD) Non-Af 106, BUN/Creatinine Ratio 10.0, Glucose 296 H, Calcium 8.6, TSH 6.24 H 09/01/22 09:21: POC Glucose 333 H 09/01/22 11:06: POC Glucose 363 H D/C Instructions Discharge Diet: Carb Control Diet May shower in (days): 2 October resume sexual activity in: 2 weeks Ice area for (Minutes): 20 Call your doctor if your incision/area has: Sudden Increased Bleeding, Increased Pain/ Swelling, Increased Redness, Foul Smelling Discharge and Swelling at the incision site Call your doctor if you observe: Fever of 101 or Higher, Inability to urinate, Inability to have a bowel movement and Uncontrolled pain Suture Line Care: Avoid Pulling/Pushing Cleanse incision/area with: Keep Dressing Clean & Dry Please Follow Up With: Esteban Dick MD When: 7 to 10 days postop Meaningful Use Info Meaningful Use Diagnoses (Choose all that apply): None applicable Discharge Plan Admission Admit Date/Time: 09/01/22 02:10 Primary Reason for Your Visit: Acute appendicitis Attending Provider: Esteban Dick Primary Care Provider: Sasha Fuentes Consulting Providers: Gabby Melo ; Dioni White Discharge Orders/Prescriptions Prescriptions: New oxycodone 5 mg Tablet 5 mg PO Q6H PRN PRN (Reason: Pain Score 6-10) 3 Days Qty: 14 0RF Continued docosahexaenoic acid [ DHA] 200 mg capsule 200 mg PO DAILY cholecalciferol (vitamin D3) 1,000 unit capsule 1,000 unit PO QDAY insulin lispro [Humalog KwikPen Insulin] 100 unit/mL insulin pen 40 unit subcut TID Rx Instructions: 36 - 32 - 32 (DME) FreeStyle Britney 2 Sensor Kit See Rx Instructions .ROUTE .MEDSUPPLY Qty: 2 6RF Rx Instructions: As directed Lantus Solostar U-100 Insulin 100 unit/mL (3 mL) insulin pen 38 unit subcut BID Rx Instructions: 38U with meals and 38U QHS sertraline [Zoloft] 50 mg tablet 50 mg PO QDAY PRN (Reason: Anxiety) trazodone 50 mg tablet 50 mg PO QHS PRN (Reason: Sleep) Label Comments: TAKE 1 TABLET BY MOUTH ONCE DAILY AT BEDTIME tramadol 50 mg tablet 50 mg PO TID PRN (Reason: Pain) levothyroxine 100 mcg tablet 100 mcg PO DAILY Referrals / Follow Up: Sasha Fuentes MD [Primary Care Provider] - Disposition Disposition (needs filled in before D/C Order can be placed): Home, Self Care Charges/Coding Visit Charges Inpatient E&M: 46535 Disch Hosp
[2022-09-01] MEDS: Insulin Lispro 100 UNIT/ML INSULN.PEN 20 UNIT SC (17:05)
[2022-09-01 17:30] LABS: Bedside Glucose 329 mg/dL (74-106)
== END 2022-09-01 18:28 | disposition home or self-care (01) ==
PROVIDERS: Anesthesiology; Admitting Provider Surgery; PCP Internal Medicine; Visit Provider Surgery
PROC: 0DTJ4ZZ Resection of Appendix, Percutaneous Endoscopic Approach (ICD-10-PCS; CPT 44970; principal; 2022-09-01 07:10)
DX: K35.80 Unspecified acute appendicitis (principal); E10.65 Type 1 diabetes mellitus with hyperglycemia; E66.01 Morbid (severe) obesity due to excess calories; Z68.42 Body mass index [BMI] 45.0-49.9, adult; Z79.4 Long term (current) use of insulin; F41.9 Anxiety disorder, unspecified; M25.562 Pain in left knee; Z79.899 Other long term (current) drug therapy; Z79.890 Hormone replacement therapy; E03.9 Hypothyroidism, unspecified; G89.29 Other chronic pain; K21.9 Gastro-esophageal reflux disease without esophagitis; F32.A Depression, unspecified; E55.9 Vitamin D deficiency, unspecified
CPT/HCPCS: 44970; 00840; 36415; 80048; 82962; 83036; 84443; 88304; 96374; 99221; J7030; A4216; G0378; J2405